=== PATIENT | male | born 1960 | race Two or more races ===

== ENCOUNTER 2019-08-25 16:29 | Emergency (ER) | payer BC ==
[~2019-08-25] VITALS: Ht 167.6 cm; Wt 65.8 kg
[2019-08-25] MEDS ORDERED: CLOPIDOGREL BISULFATE 75 MG TABLET PO ONE (17:00)
[2019-08-25 17:01] VITALS: BP 160/100
[2019-08-25] MEDS ORDERED: CLOP75TA PO (17:09)
--- NOTE | 2019-08-25 17:09 | PHYS DOC ---
Past Medical History Past Medical History: High Cholesterol, Hypertension Smoking: Cigarettes Adult General Chief Complaint Chief Complaint: dizziness and numbness HPI HPI Patient is a 59 year old male who presents with complaining of abdominal ul trasound and dizziness and numbness. Patient complaining of intermittent episodes of dizziness and right fingers numbness since December of last year that getting gradually worse. Patient had another episode yesterday and his primary care physician requested carotid ultrasound that was done today and she is called the primary care physician regarding more than 70% stenosis of proxi mal and mid left carotid study and patient was advised to come to the hospital. Patient denies numbness or dizziness at arrival to ER. Patient has history of smoking and hypertension and dyslipidemia and family history of CVA. Review of Systems Review of Systems Constitutional: Denies fever or chills [] Eyes: Denies change in visual acuity, redness, or eye pain [] HENT: Denies nasal congestion or sore throat [] Respiratory: Denies cough or shortness of breath [] Cardiovascular: No additional information not addressed in HPI [] GI: Denies abdominal pain, nausea, vomiting, bloody stools or diarrhea [] : Denies dysuria or hematuria [] Musculoskeletal: Denies back pain or joint pain [] Integument: Denies rash or skin lesions [] Neurologic: Denies headache, focal weakness, reports redness and sensory changes [] Endocrine: Denies polyuria or polydipsia [] All other systems were reviewed and found to be within normal limits, except as documented in this note. Current Medications Current Medications Current Medications Medications (Trade) Dose Ordered Sig/Rhea Start Time Stop Time Status Last Admin Dose Admin Clopidogrel Bisulfate (Plavix) 75 mg 1X ONCE 08/25/19 17:00 08/25/19 17:01 DC 08/25/19 17:21 75 MG Allergies Allergies Allergies Coded Allergies Type Severity Reaction Last Updated Verified No Known Drug Allergies 08/25/19 No Physical Exam Physical Exam Constitutional: Well developed, well nourished, mild distress, non-toxic appearance. [] HENT: Normocephalic, atraumatic. Eyes: PERRLA, EOMI, conjunctiva normal, no discharge. [] Neck: Normal range of motion, no tenderness, supple, no stridor, mild left carotid bruit Cardiovascular:Heart rate regular rhythm, no murmur [] Lungs & Thorax: Bilateral breath sounds clear to auscultation [] Abdomen: Bowel sounds normal, soft, no tenderness, no masses, no pulsatile mas ses. [] Skin: Warm, dry, no erythema, no rash. [] Back: No tenderness, no CVA tenderness. [] Extremities: No tenderness, no cyanosis, no clubbing, ROM intact, no edema. [] Neurologic: Alert and oriented X 3, no focal deficits noted. Normal sensation an d motor activity Psychologic: Affect anxious judgement normal, mood normal. [] Current Patient Data Vital Signs Vital Signs Date Time Temp Pulse Resp B/P (MAP) Pulse Ox O2 Delivery O2 Flow Rate FiO2 08/25/19 17:01 98.1 70 20 160/100 (120) 98 Room Air 98.1 EKG EKG [] Radiology/Procedures Radiology/Procedures [] Course & Med Decision Making Course & Med Decision Making Evaluation of patient in ER showed 59-year-old male patient with episodes of dizziness and right-sided numbness sent his primary care provider because of abnormal carotid ultrasound with more than 70% stenosis of left carotid artery. Is asymptomatic in ER. On-call vascular surgeon Dr. Gordillo was consulted at 1656 and he recommended to give patient Plavix and discharged home with follow- up with his office tomorrow. I've spoken with the patient and/or caregivers. I've explained the patient's condition, diagnosis and treatment plan based on information available to me at this time. I've answered the patient's and/or caregivers questions and addressed any concerns. The patient and/or caregivers have a good understanding the patie nt's diagnosis, condition and treatment plan as can be expected at this point. Vital signs have been stabilized. The patient's condition is stable for discharge from the emergency department. The patient will pursue further outpatient evaluation with her primary care provider or other designated consulting physician as outlined in the discharge instructions. Patient and/or caregivers are agreeable to this plan of care and follow-up instructions have been explained in detail. The patient and/or caregivers have received these instructions in written format and expressed understanding of these discharge instructions. The patient and her caregivers are aware that if any significant change in condition or worsening of symptoms should prompt him to immediately return to this of the closest emergency department. If an emergent department is not readily available I would encourage him to call 911. Jewell Disclaimer Dragon Disclaimer This electronic medical record was generated, in whole or in part, using a voice recognition dictation system. Departure Departure Impression: Primary Impression: TIA (transient ischemic attack) Additional Impressions: Carotid stenosis, symptomatic w/o infarct Tobacco abuse Tobacco abuse counseling Disposition: HOME, SELF-CARE (at 1715) Condition: STABLE Referrals: BRII MARCUS APRN (PCP) SAMEER GORDILLO II, MD Patient Instructions: Carotid Artery Disease, Smoking Cessation, Tips For Success, Transient Ischemic Attack Additional Instructions: Follow-up with on- call vascular surgeon tomorrow Quit smoking Return to ER if not getting better Scripts Clopidogrel Bisulfate (CLOPIDOGREL) 75 Mg Tablet 1 TAB PO DAILY, #30 TAB 0 Refills Prov: XIN BLACK MD 08/25/19 Problem Qualifiers Additional Impressions: Carotid stenosis, symptomatic w/o infarct Laterality: left Qualified Codes: I65.22 - Occlusion and stenosis of left carotid artery XIN BLACK MD Aug 25, 2019 17:09
== END 2019-08-25 17:33 | disposition home or self-care (01) ==
LOC: ER 16:29
DX: I65.22 Occlusion and stenosis of left carotid artery (principal); R42 Dizziness and giddiness; R20.0 Anesthesia of skin; Z71.6 Tobacco abuse counseling; E78.00 Pure hypercholesterolemia, unspecified; I10 Essential (primary) hypertension; F17.210 Nicotine dependence, cigarettes, uncomplicated
CPT/HCPCS: 99283

== ENCOUNTER → 2019-08-25 | Outpatient (CLI) | payer BC ==
[~2019-08-25] MED LIST: CLOP75TA PO
--- NOTE | 2019-08-25 16:08 | RAD ---
Ultrasound carotid Doppler 08/25/2019 3:30 PM INDICATION: Right eye vision changes and right hand numbness COMPARISON: None available TECHNIQUE: Sonographic imaging of the carotid vasculature was performed utilizing grayscale, color Doppler and spectral waveform analysis. FINDINGS: (All velocities are measured cm per second) Right carotid: Mild plaque is noted at the right carotid bifurcation without significant luminal stenosis. Peak systolic velocity: Proximal common carotid artery: 83 Middle common carotid artery: 83 Distal common carotid artery: 61 Proximal internal carotid artery: 139 Middle internal carotid artery: 104 Distal internal carotid artery: 83 End-diastolic velocity: 44 External carotid artery: 93 Internal carotid artery/common carotid artery ratio: 1.67 Vertebral artery: Antegrade flow Left carotid: Dense calcified atheromatous plaque is identified at the left carotid bifurcation with greater than 50 percent luminal stenosis. Peak systolic velocity: Proximal common carotid artery: 94 Middle common carotid artery: 50 Distal common carotid artery: 54 Proximal internal carotid artery: 536 Middle internal carotid artery: 289 Distal internal carotid artery: 61 End-diastolic velocity: 280 External carotid artery: 87 Internal carotid artery/common carotid artery ratio: 5.69 Vertebral artery: Antegrade flow IMPRESSION: 1. There is critical stenosis involving the left proximal internal carotid artery and greater than 70 percent stenosis involving the mid internal carotid artery. Findings are based on elevated peak systolic velocity, end-diastolic volume and internal carotid artery to common carotid artery ratios. Patient is symptomatic and therefore ordering provider recommended patient be sent to the emergency department for further evaluation. 2. 50-69 percent stenosis involving the right proximal internal carotid artery with elevated peak systolic velocity and end-diastolic velocity. 3. Antegrade flow is identified in the vertebral arteries. 4. Evaluation of the carotid vasculature and measurements for luminal stenosis was performed utilizing NASCET criteria. FOR INTERNAL CODING PURPOSES Critical result: Findings discussed with BRII MARCUS at 08/25/2019 4:00 PM. RESULT CODE: (C) Electronically signed by: Ute Casanova MD (08/25/2019 4:05 PM) [facility]
--- NOTE | 2019-08-25 16:59 | RAD ---
CERVICAL SPINE WO CONTRAST DATE: 08/25/2019 2:45 PM INDICATION: TECHNIQUE: Multiplanar multisequence magnetic resonance imaging of the cervical spine was performed without administration of intravenous contrast using the standard cervical spine protocol. COMPARISON: None. FINDINGS: The cervical spine is normally aligned. No acute fracture. Mild multilevel degenerative disc desiccation and disc height loss. Mild degenerative endplate edema at C6-7. The spinal cord is normal in signal intensity. On the limited views of the cranial cavity and brain, the cerebellum and allen have normal morphology and signal characteristics. No Chiari malformation. No soft tissue abnormality. Abnormal flow void in the right high cervical and intracranial vertebral artery. C2-3: No significant spinal canal stenosis or neural foraminal narrowing. C3-4: No significant spinal canal stenosis or neural foraminal narrowing. C4-5: Disc osteophyte complex. No significant spinal stenosis or neural foraminal narrowing. C5-6: Disc osteophyte complex. Mild spinal stenosis. No significant neuroforaminal narrowing. C6-7: Disc osteophyte complex. Mild spinal stenosis. No significant neuroforaminal narrowing. C7-T1: No significant spinal canal stenosis or neural foraminal narrowing. IMPRESSION: 1. Mild cervical spondylosis, detailed level by level above. 2. Abnormal flow void in the right high cervical and intracranial vertebral artery, which may indicate stenosis or occlusion. This could be further characterized with CTA or MRA. Electronically signed by: Lewis Yuen MD (08/25/2019 4:56 PM) [id number]
== END | disposition home or self-care (01) ==
LOC: MRI 14:05
PROVIDERS: ATTEND Nurse Practitioner Family
DX: I65.23 Occlusion and stenosis of bilateral carotid arteries (principal); I10 Essential (primary) hypertension; F17.200 Nicotine dependence, unspecified, uncomplicated; E78.5 Hyperlipidemia, unspecified
CPT/HCPCS: 72141; 93880

== ENCOUNTER 2020-03-22 04:33 | Inpatient (IN) | payer BC ==
[~2020-03-22] VITALS: Ht 167.6 cm; Wt 68.2 kg
[2020-03-22 05:01] LABS: BASO # 0.1 x10^3/uL (0.0-0.2); BASO % 1 % (0-3); EOS # 0.2 x10^3/uL (0.0-0.7); EOS % 2 % (0-3); HEMATOCRIT 43.4 % (39.0-53.0); HEMOGLOBIN 15.2 g/dL (13.0-17.5); LYMPH # 3.2 x10^3/uL (1.0-4.8); LYMPH % 24 % (24-48); MEAN CORPUSCULAR HEMOGLOBIN 30 pg (25-35); MEAN CORPUSCULAR HGB CONC 35 g/dL (31-37); MEAN CORPUSCULAR VOLUME 86 fL (79-100); MONO # 0.9 x10^3/uL (0.0-1.1); MONO % 7 % (0-9); NEUT # 8.7 x10^3/uL (1.8-7.7); NEUT % 67 % (31-73); PLATELET COUNT 328 x10^3/uL (140-400); RED BLOOD COUNT 5.04 x10^6/uL (4.30-5.70); RED CELL DISTRIBUTION WIDTH 13.4 % (11.5-14.5); WHITE BLOOD COUNT 13.1 x10^3/uL (4.0-11.0)
[2020-03-22] MEDS ORDERED: LABETALOL 20 MG/4 ML DISP.SYRIN. IVP ONE (05:15)
--- NOTE | 2020-03-22 05:19 | PHYS DOC ---
Past Medical History Past Medical History: High Cholesterol, Hypertension, TIA Additional Past Medical Histor: HEART MURMUR, spinal stenosis Past Surgical History: Tonsillectomy Additional Past Surgical Histo: TYMPANOSTOMY, HEART CATH A CHILD Smoking Status: Current Every Day Smoker Alcohol Use: Rarely Drug Use: None General Adult EDM: Chief Complaint: HYPERTENSION HPI: HPI: Patient is a 59 year old male presents with report of elevated blood pressures over the last few days. Reports had been increased on his Lisinopril to 40mg on last visit to his doctors office. Reports has been taking medication as scheduled but despite has noted his blood pressures have trended upward. Reports history of carotid artery stenosis requiring endarterectomy back in August 2019. Patient was supposed to follow up with his vascular surgeon but his appointment got canceled secondary to current national pandemic. He shouldn't awoke this morning at 0300 and took his blood pressure which he noted was 155/95. Patient did take his Lisinopril this AM at 0330. Patient reports he also has intermittent sharp headaches and has been having episodes in which he feels like his body "gets turned off". Reports weakness and heaviness to bilateral arms and leg. Reports symptoms only last a few seconds and then self resolve. Patient denies known trauma. Reports concern that his symptoms might be related to his elevated blood pressure. Patient reports he knows he starts to obsess over his blood pressure and reports he currently feels very anxious. Denies chest pain or syncope. Review of Systems: Review of Systems: Constitutional: Denies fever or chills Eyes: Denies redness or eye pain HENT: Denies nasal congestion or sore throat Respiratory: Denies cough or shortness of breath Cardiovascular: Denies chest pain or palpitations GI: Denies abdominal pain, nausea, or vomiting : Denies dysuria or hematuria Musculoskeletal: Denies back pain or joint pain Integument: Denies rash or skin lesions Neurologic: Reports headache, generalized weakness, and numbness to right upper extremity. Complete systems were reviewed and found to be within normal limits, except as documented in this note. Current Medications: Current Medications Medications (Trade) Dose Ordered Sig/Rhea Start Time Stop Time Status Last Admin Dose Admin Labetalol HCl (Normodyne Iv Push) 10 mg 1X ONCE 03/22/20 05:00 03/22/20 05:01 UNV Lorazepam (Ativan Inj) 0.5 mg 1X ONCE 03/22/20 05:00 03/22/20 05:01 UNV Allergies: Allergies: Allergies Coded Allergies Type Severity Reaction Last Updated Verified No Known Drug Allergies 08/25/19 No Physical Exam: PE: Constitutional: Well developed, well nourished, anxious, non-toxic appearance HENT: Normocephalic, atraumatic, oropharynx moist Eyes: PERRL, EOMI, conjunctiva normal, no discharge, no nystagmus Neck: Normal range of motion, no tenderness, supple Cardiovascular: Heart rate normal, regular rhythm Lungs & Thorax: Bilateral breath sounds clear to auscultation, no wheezing Abdomen: Soft, no tenderness Skin: Warm, dry, no erythema, no rash Extremities: No tenderness, ROM intact, no edema Neurologic: Alert and oriented X 3, normal motor function, normal sensory function, no focal deficits noted Psychologic: Affect anxious, judgment normal Current Patient Data: Labs: Laboratory Tests Test 03/22/20 04:53 White Blood Count 13.1 x10^3/uL (4.0-11.0) H Red Blood Count 5.04 x10^6/uL (4.30-5.70) Hemoglobin 15.2 g/dL (13.0-17.5) Hematocrit 43.4 % (39.0-53.0) Mean Corpuscular Volume 86 fL (79-100) Mean Corpuscular Hemoglobin 30 pg (25-35) Mean Corpuscular Hemoglobin Concent 35 g/dL (31-37) Red Cell Distribution Width 13.4 % (11.5-14.5) Platelet Count 328 x10^3/uL (140-400) Neutrophils (%) (Auto) 67 % (31-73) Lymphocytes (%) (Auto) 24 % (24-48) Monocytes (%) (Auto) 7 % (0-9) Eosinophils (%) (Auto) 2 % (0-3) Basophils (%) (Auto) 1 % (0-3) Neutrophils # (Auto) 8.7 x10^3/uL (1.8-7.7) H Lymphocytes # (Auto) 3.2 x10^3/uL (1.0-4.8) Monocytes # (Auto) 0.9 x10^3/uL (0.0-1.1) Eosinophils # (Auto) 0.2 x10^3/uL (0.0-0.7) Basophils # (Auto) 0.1 x10^3/uL (0.0-0.2) Laboratory Tests 03/22/20 04:53 EKG: EKG: @0447 NSR at 83bpm, NO ST elevation, baseline artifact, QRS 100ms, QT/QTc 352/414ms Radiology/Procedures: Radiology/Procedures: PROCEDURE: CT HEAD WO CONTRAST PQRS Compliance Statement: One or more of the following individualized dose reduction techniques were utilized for this examination: 1. Automated exposure control 2. Adjustment of the mA and/or kV according to patient size 3. Use of iterative reconstruction technique CT HEAD WITHOUT CONTRAST History: Headache, weakness, hypertension Comparison: None. Procedure: Axial images are obtained of the head from the skull base through the vertex without IV contrast. Findings: The ventricles and sulci are normal for the patient's age. No mass-effect, midline shift, hemorrhage, extra-axial fluid collection, or obvious acute infarction is identified. Basilar cisterns are patent. Bone windows demonstrate no acute calvarial abnormality. The visualized paranasal sinuses are clear. Mastoid air cells are well aerated. IMPRESSION: No acute intracranial abnormality. Electronically signed by: Slim Wong MD (03/22/2020 5:32 AM) [id number] Course & Med Decision Making: Course & Med Decision Making Pertinent Labs and Imaging studies reviewed. (See chart for details) Patient presents with report of elevated blood pressure which is progressively increased despite compliance with his medication. Patient also reports episodes which have been more frequent in nature in which she has significant weakness to bilateral arms and legs as if "the switch to his body was turned off". Patient with blood pressure in the 220s over 110s upon arrival. Patient does appear extremely anxious. NIHSS 0. Blood pressure and anxiety addressed. EKG stable. CT head without acute process. Aspirin provided. Labs obtained and posted to chart. Concern that given patient's symptoms and history of prior carotid stenosis that patient may be experiencing TIAs. With elevated blood pressure and recent change in no PCP, patient would benefit with inpatient admission and treatment. Patient requiring admission for further evaluation and treatment. Discussed with Dr. Aguilar (hospitalist) who is in agreement with admission. Discussed findings and plan with patient, who acknowledges understanding and agreement. Jewell Disclaimer: Jewell Disclaimer: This electronic medical record was generated, in whole or in part, using a voice recognition dictation system. Departure Departure Impression: Primary Impression: Hypertensive urgency Additional Impressions: Weakness Anxiety Disposition: ADMITTED INPATIENT Admitting Physician: WAYNE Matthews) Condition: STABLE Referrals: NO PCP (PCP) NIHSS Stroke Scale NIH Stroke Scale: NIH Stroke Scale Response (Comments) Value Level of Consciousness: 0 Alert/Responsive 0 LOC Questions: 0 Answers both correctly 0 LOC Commands: 0 Performs both tasks 0 Best Gaze: 0 Normal 0 Visual: 0 No visual loss 0 Facial Palsy: 0 Normal, symmetrical 0 Motor - Left Arm 0 No drift 0 Motor - Right Arm 0 No drift 0 Motor - Left Leg 0 No drift 0 Motor: Right Leg 0 No drift 0 Limb Ataxia: 0 Absent 0 Sensory: 0 No loss 0 Best Language: 0 Normal 0 Dysathria: 0 Normal 0 Extinction and Inattention: 0 Normal 0 Total 0 Critical Care Time Critical care time was 30 minutes which includes time at bedside, spent in discussion of patient's care with specialists and/or family members, with interpretation of laboratory and/or radiological studies and is exclusive of procedures. LOU PENA DO March 22, 2020 05:18
[2020-03-22] MEDS ORDERED: ASPIRIN 325 MG TABLET PO ONE (05:30)
[2020-03-22] MEDS ORDERED: LABETALOL 20 MG/4 ML DISP.SYRIN. IVP PRN (05:30)
--- NOTE | 2020-03-22 05:35 | RAD ---
RS Compliance Statement: One or more of the following individualized dose reduction techniques were utilized for this examination: 1. Automated exposure control 2. Adjustment of the mA and/or kV according to patient size 3. Use of iterative reconstruction technique CT HEAD WITHOUT CONTRAST History: Headache, weakness, hypertension Comparison: None. Procedure: Axial images are obtained of the head from the skull base through the vertex without IV contrast. Findings: The ventricles and sulci are normal for the patient's age. No mass-effect, midline shift, hemorrhage, extra-axial fluid collection, or obvious acute infarction is identified. Basilar cisterns are patent. Bone windows demonstrate no acute calvarial abnormality. The visualized paranasal sinuses are clear. Mastoid air cells are well aerated. IMPRESSION: No acute intracranial abnormality. Electronically signed by: Slim Wong MD (03/22/2020 5:32 AM) [id number]
[2020-03-22 05:47] LABS: CALCIUM 9.1 mg/dL (8.5-10.1); CREATININE 0.8 mg/dL (0.7-1.3); GFR 99.3; POTASSIUM 3.6 mmol/L (3.5-5.1)
[2020-03-22 05:52] LABS: ALBUMIN 4.1 g/dL (3.4-5.0); ALBUMIN/GLOBULIN RATIO 1.7 (1.0-1.7); MAGNESIUM 1.8 mg/dL (1.8-2.4); TOTAL BILIRUBIN 0.8 mg/dL (0.2-1.0); TOTAL PROTEIN 6.5 g/dL (6.4-8.2)
--- NOTE | 2020-03-22 06:16 | EKG ---
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
[2020-03-22] MEDS ORDERED: LISI40TA2 PO (07:51)
[2020-03-22] MEDS ORDERED: SIMV40TA18 PO (07:51)
[2020-03-22] MEDS ORDERED: LISINOPRIL 20 MG TABLET PO SCH (10:00)
--- NOTE | 2020-03-22 10:19 | PDOC2 ---
TIN THOMPSON ORACLE SOA ARCHITECT 03/22/20 1019: CARDIAC CONSULT DATE OF CONSULT Date of Consult DATE: 03/22/20 TIME: 10:10 REASON FOR CONSULT Reason for Consult: Accelerated HTN REFERRING PHYSICIAN Referring Physician: Dr. Molina SOURCE Source: Chart review, Patient HISTORY OF PRESENT ILLNESS HISTORY OF PRESENT ILLNESS This is a 59 yo male who presented secondary to elevated blood pressure and headache. Reports his blood pressure has been more elevated in the last couple of weeks. Was previously on 40mg daily. Quit smoking last August and started eating healthier at time of carotid endarterectomy. Blood pressure began running on low end and he was occasionally getting dizzy so he decreased his lisinopril to 20mg daily. Reports he has been eating a higher Na content diet recently. Systolic blood pressure has been ranging from 120-150 This morning at 4am, BP was 156/95. Became very anxious that blood pressure was elevated. Took his blood pressure again and SBP was 190 so he decided to come to the ED for further evaluation and treatment. He denies any chest pain, palpitations, diaphoresis, or nausea/vomiting. Of note, has significant anxiety and takes his blood pressure up to 6 times per day. Blood pressure generally more elevated at 4am in the morning. Also report a few instances over the last couple of the when his bilateral feet and occasionally his hands get heavy and weak. This generally occurs when he is walking and comes on abruptly. Last 10-15 secondary and resolved without intervention. PAST MEDICAL HISTORY Cardiovascular: HTN, Hyperlipidemia, Other (carotid artery disease s/p endarterectomy ) Pulmonary: COPD CENTRAL NERVOUS SYSTEM: TIA GI: GERD Psych: Anxiety Musculoskeletal: Other (spinal stenosis ) Renal/: Benign prostatic enlarg. PAST SURGICAL HISTORY Past Surgical History carotid endarterectomy FAMILY HISTORY Family History: Coronary Artery Disease SOCIAL HISTORY Smoke: Quit (08/2019) ALCOHOL: none Drugs: None Lives: Alone CURRENT MEDICATIONS CURRENT MEDICATIONS Current Medications Medications (Trade) Dose Ordered Sig/Rhea Route PRN Reason Start Time Stop Time Status Last Admin Dose Admin Labetalol HCl (Normodyne Iv Push) 10 mg 1X ONCE IVP 03/22/20 05:15 03/22/20 05:16 DC 03/22/20 05:25 Aspirin (Almita Aspirin) 325 mg 1X ONCE PO 03/22/20 05:30 03/22/20 05:31 DC 03/22/20 05:38 ALLERGIES ALLERGIES: Coded Allergies: No Known Drug Allergies (Unverified , 08/25/19) ROS Review of System 14 point ROS conducted with pertinent positives noted above in HPI PHYSICAL EXAM General: Alert, Oriented X3, Cooperative, No acute distress HEENT: Atraumatic, Mucous membr. moist/pink Lungs: Clear to auscultation, Normal air movement Heart: Regular rate Abdomen: Soft, No tenderness Extremities: No edema, Normal pulses Skin: No breakdown, No significant lesion Neuro: Normal speech, Sensation intact Psych/Mental Status: Mental status NL, Mood NL MUSCULOSKELETAL: No joint tenderness VITALS/I&O VITALS/I&O: Vital Signs Date Time Temp Pulse Resp B/P (MAP) Pulse Ox O2 Delivery O2 Flow Rate FiO2 03/22/20 08:30 Room Air 03/22/20 06:17 71 13 99 03/22/20 05:25 185/98 03/22/20 04:40 98.0 98.0 LABS Lab: Laboratory Tests Test 03/22/20 04:53 03/22/20 05:22 03/22/20 08:30 White Blood Count 13.1 x10^3/uL (4.0-11.0) H Red Blood Count 5.04 x10^6/uL (4.30-5.70) Hemoglobin 15.2 g/dL (13.0-17.5) Hematocrit 43.4 % (39.0-53.0) Mean Corpuscular Volume 86 fL (79-100) Mean Corpuscular Hemoglobin 30 pg (25-35) Mean Corpuscular Hemoglobin Concent 35 g/dL (31-37) Red Cell Distribution Width 13.4 % (11.5-14.5) Platelet Count 328 x10^3/uL (140-400) Neutrophils (%) (Auto) 67 % (31-73) Lymphocytes (%) (Auto) 24 % (24-48) Monocytes (%) (Auto) 7 % (0-9) Eosinophils (%) (Auto) 2 % (0-3) Basophils (%) (Auto) 1 % (0-3) Neutrophils # (Auto) 8.7 x10^3/uL (1.8-7.7) H Lymphocytes # (Auto) 3.2 x10^3/uL (1.0-4.8) Monocytes # (Auto) 0.9 x10^3/uL (0.0-1.1) Eosinophils # (Auto) 0.2 x10^3/uL (0.0-0.7) Basophils # (Auto) 0.1 x10^3/uL (0.0-0.2) Sodium Level 138 mmol/L (136-145) Potassium Level 3.6 mmol/L (3.5-5.1) Chloride Level 100 mmol/L (98-107) Carbon Dioxide Level 26 mmol/L (21-32) Anion Gap 12 (6-14) Blood Urea Nitrogen 22 mg/dL (8-26) Creatinine 0.8 mg/dL (0.7-1.3) Estimated GFR (Cockcroft-Gault) 99.3 BUN/Creatinine Ratio 28 (6-20) H Glucose Level 118 mg/dL (70-99) H Calcium Level 9.1 mg/dL (8.5-10.1) Magnesium Level 1.8 mg/dL (1.8-2.4) Total Bilirubin 0.8 mg/dL (0.2-1.0) Aspartate Amino Transferase (AST) 18 U/L (15-37) Alanine Aminotransferase (ALT) 28 U/L (16-63) Alkaline Phosphatase 43 U/L (46-116) L Creatine Kinase 81 U/L (39-308) Creatine Kinase MB (Mass) 1.4 ng/mL (0.0-3.6) Creatine Kinase MB Relative Index 1.7 % (0-4) Troponin I Quantitative < 0.017 ng/mL (0.000-0.055) < 0.017 ng/mL (0.000-0.055) Total Protein 6.5 g/dL (6.4-8.2) Albumin 4.1 g/dL (3.4-5.0) Albumin/Globulin Ratio 1.7 (1.0-1.7) Laboratory Tests 03/22/20 04:53 Laboratory Tests 03/22/20 05:22 ASSESSMENT/PLAN ASSESSMENT/PLAN 1. Hypertensive urgency; now better controlled. Blood pressure generally runs more elevated in the am per patient record 2. Intermittent bilateral LE heaviness/weakness; last 10-15 seconds and resolves without intervention. vascular and neuro consult 3. Carotid disease; s/p recent left carotid endarterectomy at 4. Hyperlipidemia; statin 5. Tobaccoism; in remission 6. Anxiety Recommendations Continue lisinopril; will increase to BID dosing as blood pressure is generally more elevated in the morning Add ASA Continue statin Outpatient echocardiogram to assess LV systolic function Consider outpatient stress test given risk factors. Patient would like further cardiac workup to be conducted at as he has seen a magnetic prospecting operator there previously and has been following there for carotid disease Supportive care. DAMIEN DOVE MD 03/22/20 1449: CARDIAC CONSULT ASSESSMENT/PLAN ASSESSMENT/PLAN Patient seen and examined. Agree with NAPRAPATH's assessment and plan. Blood pressure much better controlled since admission. Agree with 2D echo and MPI as an outpatient Thank you for the consultation TIN THOMPSON APRN March 22, 2020 10:19 DAMIEN DOVE MD March 22, 2020 14:49
--- NOTE | 2020-03-22 10:21 | PDOC1 ---
History and Physical Date of Admission Date of Admission DATE: 03/22/20 TIME: 10:12 Identification/Chief Complaint Chief Complaint htn Source Source: Chart review, Patient History of Present Illness History of Present Illness Mr. Navarro, is a 59 year old male went tot he ER as he was worried about his blood pressure he had been increased on his Lisinopril to 40mg on last visit to his doctors office, possibly Dr. Wilkerson, he is unsure, but he has been taking half a pill on his own as he checks his blood pressure three times day every day and has some readings of 100 range systolic over the past month,. he has noted his blood pressures have trended upward the past 3 days and he was very worried, . Reports history of carotid artery stenosis requiring endarterectomy back in August 2019, Dr. Brunson. he has had trouble following up due to COVID-19 this AM, 0300, bp was 155/95. Patient did take his Lisinopril this AM at 0330. Patient reports he also has intermittent sharp headaches and has been having episodes in which he feels like his body "gets turned off". Reports weakness and heaviness to bilateral arms and leg. possible TIA symptoms, Patient reports he knows he starts to obsess over his blood pressure and reports he currently feels very anxious. he declined that ativan ordered in the ER and says he doesnt want treatment for anxiety, he just deals with it. Denies chest pain or syncope. 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, Past Medical History Past Medical History carotid stenosis Cardiovascular: HTN, Hyperlipidemia Pulmonary: No pertinent hx GI: No pertinent hx Heme/Onc: No pertinent hx Family History Family History: No Significant Social History Smoke: No ALCOHOL: none Drugs: None Current Problem List Problem List Problems Medical Problems: (1) Anxiety Status: Acute (2) Hypertensive urgency Status: Acute (3) Weakness Status: Acute Current Medications Current Medications Current Medications Labetalol HCl (Normodyne Iv Push) 10 mg 1X ONCE IVP Last administered on 03/22/20at 05:25; Start 03/22/20 at 05:15; Stop 03/22/20 at 05:16; Status DC Lorazepam (Ativan Inj) 0.5 mg 1X ONCE IVP ; Start 03/22/20 at 05:15; Stop 03/22/20 at 05:16; Status DC Labetalol HCl (Normodyne Iv Push) 10 mg PRN Q4HRS PRN IVP HYPERTENSION; Start 03/22/20 at 05:30 Lorazepam (Ativan Inj) 0.5 mg PRN Q4HRS PRN IVP ANXIETY / AGITATION; Start 03/22/20 at 05:30 Aspirin (Almita Aspirin) 325 mg 1X ONCE PO Last administered on 03/22/20at 05:38; Start 03/22/20 at 05:30; Stop 03/22/20 at 05:31; Status DC Simvastatin (Zocor) 40 mg HS PO ; Start 03/22/20 at 21:00 Lisinopril (Prinivil) 40 mg DAILY PO ; Start 03/22/20 at 10:00 Active Scripts Active Reported Simvastatin 40 Mg Tablet 40 Mg PO HS Lisinopril 40 Mg Tablet 20 PO DAILY Allergies Allergies: Coded Allergies: No Known Drug Allergies (Unverified , 08/25/19) ROS General: No: Chills, Night Sweats, Fatigue, Malaise, Appetite, Other PSYCHOLOGICAL ROS: YES: Anxiety; No: Behavioral Disorder, Concentration difficultie, Decreased libido, Depression, Disorientation, Hallucinations, Hostility, Irritablity, Memory difficulties, Mood Swings, Obsessive thoughts, Physical abuse, Sexual abuse, Sleep disturbances, Suicidal ideation, Other Eyes: No Blurry vision, No Decreased vision, No Double vision, No Dry eyes, No Excessive tearing, No Eye Pain, No Itchy Eyes, No Loss of vision, No Photophobia, No Scotomata, No Uses contacts, No Uses glasses, No Other HEENT: No: Heacaches, Visual Changes, Hearing change, Nasal congestion, Nasal discharge, Oral lesions, Sinus pain, Sore Throat, Epistaxis, Sneezing, Snoring, Tinnitus, Vertigo, Vocal changes, Other Respiratory: No: Cough, Hemoptysis, Orthopnea, Pleuritic Pain, Shortness of breath, SOB with excertion, Sputum Changes, Stridor, Tachypnea, Wheezing, Other Cardiovascular: No Chest Pain, No Palpitations, No Orthopnea, No Paroxysmal Noc. Dyspnea, No Edema, No Lt Headedness, No Other Gastrointestinal: No Nausea, No Vomiting, No Abdominal Pain, No Diarrhea, No Constipation, No Melena, No Hematochezia, No Other Genitourinary: No Dysuria, No Frequency, No Incontinence, No Hematuria, No Retention, No Discharge, No Urgency, No Pain, No Flank Pain, No Other, No , No , No , No , No , No , No Musculoskeletal: No Gait Disturbance, No Joint Pain, No Joint Stiffness, No Joint Swelling, No Muscle Pain, No Muscular Weakness, No Pain In:, No Swelling In:, No Other Neurological: No Behavorial Changes, No Bowel/Bladder ControlChng, No Confusion, No Dizziness, No Gait Disturbance, No Headaches, No Impaired Coord/balance, No Memory Loss, No Numbness/Tingling, No Seizures, No Speech Problems, No Tremors, No Visual Changes, No Weakness, No Other Skin: No Dry Skin, No Eczema, No Hair Changes, No Lumps, No Mole Changes, No Mottling, No Nail Changes, No Pruritus, No Rash, No Skin Lesion Changes, No Other, No Acne Physical Exam General: Alert, Oriented X3, Cooperative HEENT: Atraumatic, PERRLA Lungs: Clear to auscultation Heart: S1S2, RRR Abdomen: Normal bowel sounds, Soft Rectal Exam: not examined Extremities: No clubbing, No cyanosis, No edema Skin: No breakdown Neuro: Normal gait, Normal tone, Sensation intact Psych/Mental Status: Mental status NL, Mood NL Vitals Vitals Vital Signs Date Time Temp Pulse Resp B/P (MAP) Pulse Ox O2 Delivery O2 Flow Rate FiO2 03/22/20 08:30 Room Air 03/22/20 06:17 71 13 99 03/22/20 05:25 185/98 03/22/20 04:40 98.0 98.0 Labs Labs Laboratory Tests Test 03/22/20 04:53 03/22/20 05:22 03/22/20 08:30 White Blood Count 13.1 x10^3/uL (4.0-11.0) Red Blood Count 5.04 x10^6/uL (4.30-5.70) Hemoglobin 15.2 g/dL (13.0-17.5) Hematocrit 43.4 % (39.0-53.0) Mean Corpuscular Volume 86 fL (79-100) Mean Corpuscular Hemoglobin 30 pg (25-35) Mean Corpuscular Hemoglobin Concent 35 g/dL (31-37) Red Cell Distribution Width 13.4 % (11.5-14.5) Platelet Count 328 x10^3/uL (140-400) Neutrophils (%) (Auto) 67 % (31-73) Lymphocytes (%) (Auto) 24 % (24-48) Monocytes (%) (Auto) 7 % (0-9) Eosinophils (%) (Auto) 2 % (0-3) Basophils (%) (Auto) 1 % (0-3) Neutrophils # (Auto) 8.7 x10^3/uL (1.8-7.7) Lymphocytes # (Auto) 3.2 x10^3/uL (1.0-4.8) Monocytes # (Auto) 0.9 x10^3/uL (0.0-1.1) Eosinophils # (Auto) 0.2 x10^3/uL (0.0-0.7) Basophils # (Auto) 0.1 x10^3/uL (0.0-0.2) Sodium Level 138 mmol/L (136-145) Potassium Level 3.6 mmol/L (3.5-5.1) Chloride Level 100 mmol/L (98-107) Carbon Dioxide Level 26 mmol/L (21-32) Anion Gap 12 (6-14) Blood Urea Nitrogen 22 mg/dL (8-26) Creatinine 0.8 mg/dL (0.7-1.3) Estimated GFR (Cockcroft-Gault) 99.3 BUN/Creatinine Ratio 28 (6-20) Glucose Level 118 mg/dL (70-99) Calcium Level 9.1 mg/dL (8.5-10.1) Magnesium Level 1.8 mg/dL (1.8-2.4) Total Bilirubin 0.8 mg/dL (0.2-1.0) Aspartate Amino Transf (AST/SGOT) 18 U/L (15-37) Alanine Aminotransferase (ALT/SGPT) 28 U/L (16-63) Alkaline Phosphatase 43 U/L (46-116) Creatine Kinase 81 U/L (39-308) Creatine Kinase MB (Mass) 1.4 ng/mL (0.0-3.6) Creatine Kinase MB Relative Index 1.7 % (0-4) Troponin I Quantitative < 0.017 ng/mL (0.000-0.055) < 0.017 ng/mL (0.000-0.055) Total Protein 6.5 g/dL (6.4-8.2) Albumin 4.1 g/dL (3.4-5.0) Albumin/Globulin Ratio 1.7 (1.0-1.7) Laboratory Tests Test 03/22/20 04:53 03/22/20 05:22 03/22/20 08:30 White Blood Count 13.1 x10^3/uL (4.0-11.0) Red Blood Count 5.04 x10^6/uL (4.30-5.70) Hemoglobin 15.2 g/dL (13.0-17.5) Hematocrit 43.4 % (39.0-53.0) Mean Corpuscular Volume 86 fL (79-100) Mean Corpuscular Hemoglobin 30 pg (25-35) Mean Corpuscular Hemoglobin Concent 35 g/dL (31-37) Red Cell Distribution Width 13.4 % (11.5-14.5) Platelet Count 328 x10^3/uL (140-400) Neutrophils (%) (Auto) 67 % (31-73) Lymphocytes (%) (Auto) 24 % (24-48) Monocytes (%) (Auto) 7 % (0-9) Eosinophils (%) (Auto) 2 % (0-3) Basophils (%) (Auto) 1 % (0-3) Neutrophils # (Auto) 8.7 x10^3/uL (1.8-7.7) Lymphocytes # (Auto) 3.2 x10^3/uL (1.0-4.8) Monocytes # (Auto) 0.9 x10^3/uL (0.0-1.1) Eosinophils # (Auto) 0.2 x10^3/uL (0.0-0.7) Basophils # (Auto) 0.1 x10^3/uL (0.0-0.2) Sodium Level 138 mmol/L (136-145) Potassium Level 3.6 mmol/L (3.5-5.1) Chloride Level 100 mmol/L (98-107) Carbon Dioxide Level 26 mmol/L (21-32) Anion Gap 12 (6-14) Blood Urea Nitrogen 22 mg/dL (8-26) Creatinine 0.8 mg/dL (0.7-1.3) Estimated GFR (Cockcroft-Gault) 99.3 BUN/Creatinine Ratio 28 (6-20) Glucose Level 118 mg/dL (70-99) Calcium Level 9.1 mg/dL (8.5-10.1) Magnesium Level 1.8 mg/dL (1.8-2.4) Total Bilirubin 0.8 mg/dL (0.2-1.0) Aspartate Amino Transf (AST/SGOT) 18 U/L (15-37) Alanine Aminotransferase (ALT/SGPT) 28 U/L (16-63) Alkaline Phosphatase 43 U/L (46-116) Creatine Kinase 81 U/L (39-308) Creatine Kinase MB (Mass) 1.4 ng/mL (0.0-3.6) Creatine Kinase MB Relative Index 1.7 % (0-4) Troponin I Quantitative < 0.017 ng/mL (0.000-0.055) < 0.017 ng/mL (0.000-0.055) Total Protein 6.5 g/dL (6.4-8.2) Albumin 4.1 g/dL (3.4-5.0) Albumin/Globulin Ratio 1.7 (1.0-1.7) VTE Prophylaxis Ordered VTE Prophylaxis Devices: No VTE Pharmacological Prophylaxi: No Assessment/Plan Assessment/Plan accelerated hypertension orthostatic hypotension anxiety of health condition hx of carotid stenosis and surgery with Dr. Brunson consult cardio, he has been takign 20 mg lisinopril only, and checking 3 times a day and gets upset if he gets ANY high readings, needs reassurance ELOINA SORIANO MD March 22, 2020 10:21
[2020-03-22] MEDS ORDERED: amLODIPine BESYLATE 5 MG TABLET PO SCH (10:30)
[2020-03-22 11:10] VITALS: BP 150/81
[2020-03-22 11:13] VITALS: BP 128/85
[2020-03-22 11:16] VITALS: BP 124/81
--- NOTE | 2020-03-22 12:18 | PDOC2 ---
CONSULT Date of Consult Date of Consult DATE: 03/22/20 TIME: 12:13 Reason for Consult Reason for Consult: Possible TIA, history of carotid endarterectomy Identification/Chief Complaint Chief Complaint Right arm weakness, bilateral leg weakness Source Source: Chart review, Patient History of Present Illness Reason for Visit: Is a very nice 59-year-old male who underwent a left carotid endarterectomy for very high-grade symptomatic stenosis less than a year ago. He did well, and has been on appropriate medical management since with aspirin statin and blood pressure control. He tells me he quit smoking in August. He was admitted with the recurrent symptoms of right arm weakness and numbness as well as bilateral lower extremity weakness and numbness that lasts just a few seconds and then resolves. He states that he also had an episode where he felt like he was "walking sideways" presumably because 1 leg was weaker and not functioning as well as the other. He denies any amaurosis fugax, he noted that at the time of the symptoms he also had extremely elevated blood pressure. He was admitted with a hypertensive urgency. He denies any recent chest pain, shortness of breath, other true localizing symptoms as described above Past Medical History Cardiovascular: HTN, Hyperlipidemia Pulmonary: No pertinent hx CENTRAL NERVOUS SYSTEM: TIA GI: No pertinent hx Heme/Onc: No pertinent hx Psych: Anxiety Musculoskeletal: Other (spinal stenosis ) Renal/: Benign prostatic enlarg. Past Surgical History Past Surgical History Left carotid endarterectomy Family History Family History: No Significant Social History No ALCOHOL: none Drugs: None Current Problem List Problem List Problems Medical Problems: (1) Anxiety Status: Acute (2) Hypertensive urgency Status: Acute (3) Weakness Status: Acute Current Medications Current Medications Current Medications Labetalol HCl (Normodyne Iv Push) 10 mg 1X ONCE IVP Last administered on 03/22/20at 05:25; Start 03/22/20 at 05:15; Stop 03/22/20 at 05:16; Status DC Lorazepam (Ativan Inj) 0.5 mg 1X ONCE IVP ; Start 03/22/20 at 05:15; Stop 03/22/20 at 05:16; Status DC Labetalol HCl (Normodyne Iv Push) 10 mg PRN Q4HRS PRN IVP HYPERTENSION; Start 03/22/20 at 05:30 Lorazepam (Ativan Inj) 0.5 mg PRN Q4HRS PRN IVP ANXIETY / AGITATION; Start 03/22/20 at 05:30 Aspirin (Almita Aspirin) 325 mg 1X ONCE PO Last administered on 03/22/20at 05:38; Start 03/22/20 at 05:30; Stop 03/22/20 at 05:31; Status DC Simvastatin (Zocor) 40 mg HS PO ; Start 03/22/20 at 21:00; Stop 03/22/20 at 10:18; Status DC Lisinopril (Prinivil) 40 mg DAILY PO Last administered on 03/22/20at 11:16; Start 03/22/20 at 10:00 Amlodipine Besylate (Norvasc) 5 mg DAILY PO ; Start 03/22/20 at 10:30 Aspirin (Ecotrin) 81 mg DAILYWBKFT PO ; Start 03/23/20 at 08:00 Atorvastatin Calcium (Lipitor) 10 mg QHS PO ; Start 03/22/20 at 21:00 Active Scripts Active Reported Simvastatin 40 Mg Tablet 40 Mg PO HS Lisinopril 40 Mg Tablet 20 PO DAILY Allergies Allergies: Coded Allergies: No Known Drug Allergies (Unverified , 08/25/19) Physical Exam Physical Exam Left neck CEA incision well-healed No carotid bruit General: Alert, Oriented X3 HEENT: Atraumatic Heart: Regular rate, No murmurs Abdomen: Normal bowel sounds, Soft Extremities: No clubbing, No edema, Normal pulses Skin: No rashes, No breakdown Neuro: Normal gait, Normal speech, Strength at /5 X4 ext Psych/Mental Status: Mental status NL MUSCULOSKELETAL: No joint tenderness Vitals VITALS Vital Signs Date Time Temp Pulse Resp B/P (MAP) Pulse Ox O2 Delivery O2 Flow Rate FiO2 03/22/20 11:16 79 124/81 (95) 03/22/20 08:30 Room Air 03/22/20 06:17 13 99 03/22/20 04:40 98.0 98.0 Labs Labs Laboratory Tests Test 03/22/20 04:53 03/22/20 05:22 03/22/20 08:30 White Blood Count 13.1 x10^3/uL (4.0-11.0) Red Blood Count 5.04 x10^6/uL (4.30-5.70) Hemoglobin 15.2 g/dL (13.0-17.5) Hematocrit 43.4 % (39.0-53.0) Mean Corpuscular Volume 86 fL (79-100) Mean Corpuscular Hemoglobin 30 pg (25-35) Mean Corpuscular Hemoglobin Concent 35 g/dL (31-37) Red Cell Distribution Width 13.4 % (11.5-14.5) Platelet Count 328 x10^3/uL (140-400) Neutrophils (%) (Auto) 67 % (31-73) Lymphocytes (%) (Auto) 24 % (24-48) Monocytes (%) (Auto) 7 % (0-9) Eosinophils (%) (Auto) 2 % (0-3) Basophils (%) (Auto) 1 % (0-3) Neutrophils # (Auto) 8.7 x10^3/uL (1.8-7.7) Lymphocytes # (Auto) 3.2 x10^3/uL (1.0-4.8) Monocytes # (Auto) 0.9 x10^3/uL (0.0-1.1) Eosinophils # (Auto) 0.2 x10^3/uL (0.0-0.7) Basophils # (Auto) 0.1 x10^3/uL (0.0-0.2) Sodium Level 138 mmol/L (136-145) Potassium Level 3.6 mmol/L (3.5-5.1) Chloride Level 100 mmol/L (98-107) Carbon Dioxide Level 26 mmol/L (21-32) Anion Gap 12 (6-14) Blood Urea Nitrogen 22 mg/dL (8-26) Creatinine 0.8 mg/dL (0.7-1.3) Estimated GFR (Cockcroft-Gault) 99.3 BUN/Creatinine Ratio 28 (6-20) Glucose Level 118 mg/dL (70-99) Calcium Level 9.1 mg/dL (8.5-10.1) Magnesium Level 1.8 mg/dL (1.8-2.4) Total Bilirubin 0.8 mg/dL (0.2-1.0) Aspartate Amino Transf (AST/SGOT) 18 U/L (15-37) Alanine Aminotransferase (ALT/SGPT) 28 U/L (16-63) Alkaline Phosphatase 43 U/L (46-116) Creatine Kinase 81 U/L (39-308) Creatine Kinase MB (Mass) 1.4 ng/mL (0.0-3.6) Creatine Kinase MB Relative Index 1.7 % (0-4) Troponin I Quantitative < 0.017 ng/mL (0.000-0.055) < 0.017 ng/mL (0.000-0.055) Total Protein 6.5 g/dL (6.4-8.2) Albumin 4.1 g/dL (3.4-5.0) Albumin/Globulin Ratio 1.7 (1.0-1.7) Laboratory Tests Test 03/22/20 04:53 03/22/20 05:22 03/22/20 08:30 White Blood Count 13.1 x10^3/uL (4.0-11.0) Red Blood Count 5.04 x10^6/uL (4.30-5.70) Hemoglobin 15.2 g/dL (13.0-17.5) Hematocrit 43.4 % (39.0-53.0) Mean Corpuscular Volume 86 fL (79-100) Mean Corpuscular Hemoglobin 30 pg (25-35) Mean Corpuscular Hemoglobin Concent 35 g/dL (31-37) Red Cell Distribution Width 13.4 % (11.5-14.5) Platelet Count 328 x10^3/uL (140-400) Neutrophils (%) (Auto) 67 % (31-73) Lymphocytes (%) (Auto) 24 % (24-48) Monocytes (%) (Auto) 7 % (0-9) Eosinophils (%) (Auto) 2 % (0-3) Basophils (%) (Auto) 1 % (0-3) Neutrophils # (Auto) 8.7 x10^3/uL (1.8-7.7) Lymphocytes # (Auto) 3.2 x10^3/uL (1.0-4.8) Monocytes # (Auto) 0.9 x10^3/uL (0.0-1.1) Eosinophils # (Auto) 0.2 x10^3/uL (0.0-0.7) Basophils # (Auto) 0.1 x10^3/uL (0.0-0.2) Sodium Level 138 mmol/L (136-145) Potassium Level 3.6 mmol/L (3.5-5.1) Chloride Level 100 mmol/L (98-107) Carbon Dioxide Level 26 mmol/L (21-32) Anion Gap 12 (6-14) Blood Urea Nitrogen 22 mg/dL (8-26) Creatinine 0.8 mg/dL (0.7-1.3) Estimated GFR (Cockcroft-Gault) 99.3 BUN/Creatinine Ratio 28 (6-20) Glucose Level 118 mg/dL (70-99) Calcium Level 9.1 mg/dL (8.5-10.1) Magnesium Level 1.8 mg/dL (1.8-2.4) Total Bilirubin 0.8 mg/dL (0.2-1.0) Aspartate Amino Transf (AST/SGOT) 18 U/L (15-37) Alanine Aminotransferase (ALT/SGPT) 28 U/L (16-63) Alkaline Phosphatase 43 U/L (46-116) Creatine Kinase 81 U/L (39-308) Creatine Kinase MB (Mass) 1.4 ng/mL (0.0-3.6) Creatine Kinase MB Relative Index 1.7 % (0-4) Troponin I Quantitative < 0.017 ng/mL (0.000-0.055) < 0.017 ng/mL (0.000-0.055) Total Protein 6.5 g/dL (6.4-8.2) Albumin 4.1 g/dL (3.4-5.0) Albumin/Globulin Ratio 1.7 (1.0-1.7) Images Images Will obtain a carotid duplex and a renal artery duplex today Assessment/Plan Assessment/Plan Patient with some questionable localized neurologic symptoms with a history of left carotid endarterectomy for very high-grade carotid stenosis surgery performed a less than a year ago. I did discuss with him that there is about a 5% recurrent stenosis right after carotid endarterectomy, it is not clear that his symptoms are truly left hemispheric localizing. I reviewed his carotid duplex from prior to surgery at admission at the end of 2019 and the right carotid was only mildly narrowed at that time. He is on appropriate medications and states that he has been following this regimen without interruption. He tells me that he stopped smoking several mon ths ago. We will plan on repeat carotid duplex today or tomorrow Given his elevated blood pressure and his known atherosclerotic occlusive disease I did recommend a renal artery duplex as well. Will follow along with him and these results while he is here in the hospital. LILLIANA DING MD March 22, 2020 12:18
--- NOTE | 2020-03-22 12:46 | NUR ---
SS following up with discharge planning. SS discussed with pt RN. Pt is from home and is currently on room air. Per pt's RN, pt will most likely discharge to home later today. SS will continue to follow for discharge planning.
--- NOTE | 2020-03-22 13:40 | PDOC2 ---
NEUROLOGY CONSULT Date of Admission Date of Admission DATE: 03/22/20 TIME: 13:32 Reason for Consult Reason for Consult: TIA symptoms Referring Physician Referring Physician: Dr. Molina Source Source: Chart review, Patient History of Present Illness History of Present Illness The patient is a 59-year-old right-handed male who went to the Emergency department because he has noticed his blood pressure is high. He has had headaches, numbness in the right arm, feeling of heaviness in the right leg, also some numbness in the left arm and leg occasionally simultaneously. He had a left carotid endarterectomy in August 2019. He feels like his body is dragging at times. He is anxious about his blood pressure. There is no history of full-blown stroke, seizure, or head injury. He had similar symptoms before the carotid surgery. Past Medical History Cardiovascular: HTN, Hyperlipidemia Pulmonary: COPD Musculoskeletal: low back pain (lumbar spinal stenosis, cervical spine disease) Renal/: Benign prostatic enlarg. Past Surgical History Past Surgical History: Other (Left carotid endarterectomy) Family History Family History: CAD Social History Social History Quit smoking August 2019, rare alcohol, retired, Current Medications Current Medications Current Medications Labetalol HCl (Normodyne Iv Push) 10 mg 1X ONCE IVP Last administered on 03/22/20at 05:25; Start 03/22/20 at 05:15; Stop 03/22/20 at 05:16; Status DC Lorazepam (Ativan Inj) 0.5 mg 1X ONCE IVP ; Start 03/22/20 at 05:15; Stop 03/22/20 at 05:16; Status DC Labetalol HCl (Normodyne Iv Push) 10 mg PRN Q4HRS PRN IVP HYPERTENSION; Start 03/22/20 at 05:30 Lorazepam (Ativan Inj) 0.5 mg PRN Q4HRS PRN IVP ANXIETY / AGITATION; Start 03/22/20 at 05:30 Aspirin (Almita Aspirin) 325 mg 1X ONCE PO Last administered on 03/22/20at 05:38; Start 03/22/20 at 05:30; Stop 03/22/20 at 05:31; Status DC Simvastatin (Zocor) 40 mg HS PO ; Start 03/22/20 at 21:00; Stop 03/22/20 at 10:18; Status DC Lisinopril (Prinivil) 40 mg DAILY PO Last administered on 03/22/20at 11:16; Start 03/22/20 at 10:00; Stop 03/22/20 at 13:03; Status DC Amlodipine Besylate (Norvasc) 5 mg DAILY PO ; Start 03/22/20 at 10:30; Stop 03/22/20 at 13:03; Status DC Aspirin (Ecotrin) 81 mg DAILYWBKFT PO ; Start 03/23/20 at 08:00 Atorvastatin Calcium (Lipitor) 10 mg QHS PO ; Start 03/22/20 at 21:00 Lisinopril (Prinivil) 20 mg BID PO ; Start 03/22/20 at 14:00 Active Scripts Active Reported Simvastatin 40 Mg Tablet 40 Mg PO HS Lisinopril 40 Mg Tablet 20 PO DAILY Allergies Allergies: Coded Allergies: No Known Drug Allergies (Unverified , 08/25/19) ROS Review of System Negative for fever, chills, weight loss, shortness of breath, chest pain, indigestion, hematochezia, melena, and dysuria. Full 14-point review of systems is negative. Physical Exam Physical Examination General: Well-developed, well-nourished white male in no acute distress HEENT: Normocephalic andatraumatic.Temporal arteriespulsatile and nontender.Fundoscopic exam unremarkable Neck: Supple without bruit, no meningismus Musculoskeletal: Stability:see neurologic. Gait exam:see neurologic. Tone:see neurologic.Strength:see neurologic. Neurological: Mental Status:intact, orientation, memory, attention span/concentration, language, fund of knowledge normal. Cranial Nerves:Pupils equal and reactive to light, extraocular movements areintact, visual morales are full to confrontat ion. Facial sensation is normal. There is no facial asymmetry. Vestibulo-ocular reflex is intact. Palate elevates and tongue protrudes in midline. All other cranial related problems are negative except as mentioned before.Reflexes:2+ and symmetric with flexor plantar responses. Motor:5/5 strength with normal tone and bulk. Coordination:Finger-nose finger and kdkh-gg-[id number] testing are normal. Rapid alternating movements and fine finger movements are intact. Gait: a little arthritic, can tandem. Sensory:Normal pinprick, vibration, light touch, proprioception. Vitals VITALS Vital Signs Date Time Temp Pulse Resp B/P (MAP) Pulse Ox O2 Delivery O2 Flow Rate FiO2 03/22/20 11:16 79 124/81 (95) 03/22/20 08:30 Room Air 03/22/20 06:17 13 99 03/22/20 04:40 98.0 98.0 Labs Labs Laboratory Tests Test 03/22/20 04:53 03/22/20 05:22 03/22/20 08:30 03/22/20 11:15 White Blood Count 13.1 x10^3/uL (4.0-11.0) Red Blood Count 5.04 x10^6/uL (4.30-5.70) Hemoglobin 15.2 g/dL (13.0-17.5) Hematocrit 43.4 % (39.0-53.0) Mean Corpuscular Volume 86 fL (79-100) Mean Corpuscular Hemoglobin 30 pg (25-35) Mean Corpuscular Hemoglobin Concent 35 g/dL (31-37) Red Cell Distribution Width 13.4 % (11.5-14.5) Platelet Count 328 x10^3/uL (140-400) Neutrophils (%) (Auto) 67 % (31-73) Lymphocytes (%) (Auto) 24 % (24-48) Monocytes (%) (Auto) 7 % (0-9) Eosinophils (%) (Auto) 2 % (0-3) Basophils (%) (Auto) 1 % (0-3) Neutrophils # (Auto) 8.7 x10^3/uL (1.8-7.7) Lymphocytes # (Auto) 3.2 x10^3/uL (1.0-4.8) Monocytes # (Auto) 0.9 x10^3/uL (0.0-1.1) Eosinophils # (Auto) 0.2 x10^3/uL (0.0-0.7) Basophils # (Auto) 0.1 x10^3/uL (0.0-0.2) Sodium Level 138 mmol/L (136-145) Potassium Level 3.6 mmol/L (3.5-5.1) Chloride Level 100 mmol/L (98-107) Carbon Dioxide Level 26 mmol/L (21-32) Anion Gap 12 (6-14) Blood Urea Nitrogen 22 mg/dL (8-26) Creatinine 0.8 mg/dL (0.7-1.3) Estimated GFR (Cockcroft-Gault) 99.3 BUN/Creatinine Ratio 28 (6-20) Glucose Level 118 mg/dL (70-99) Calcium Level 9.1 mg/dL (8.5-10.1) Magnesium Level 1.8 mg/dL (1.8-2.4) Total Bilirubin 0.8 mg/dL (0.2-1.0) Aspartate Amino Transf (AST/SGOT) 18 U/L (15-37) Alanine Aminotransferase (ALT/SGPT) 28 U/L (16-63) Alkaline Phosphatase 43 U/L (46-116) Creatine Kinase 81 U/L (39-308) Creatine Kinase MB (Mass) 1.4 ng/mL (0.0-3.6) Creatine Kinase MB Relative Index 1.7 % (0-4) Troponin I Quantitative < 0.017 ng/mL (0.000-0.055) < 0.017 ng/mL (0.000-0.055) < 0.017 ng/mL (0.000-0.055) Total Protein 6.5 g/dL (6.4-8.2) Albumin 4.1 g/dL (3.4-5.0) Albumin/Globulin Ratio 1.7 (1.0-1.7) Laboratory Tests Test 03/22/20 04:53 03/22/20 05:22 03/22/20 08:30 03/22/20 11:15 White Blood Count 13.1 x10^3/uL (4.0-11.0) Red Blood Count 5.04 x10^6/uL (4.30-5.70) Hemoglobin 15.2 g/dL (13.0-17.5) Hematocrit 43.4 % (39.0-53.0) Mean Corpuscular Volume 86 fL (79-100) Mean Corpuscular Hemoglobin 30 pg (25-35) Mean Corpuscular Hemoglobin Concent 35 g/dL (31-37) Red Cell Distribution Width 13.4 % (11.5-14.5) Platelet Count 328 x10^3/uL (140-400) Neutrophils (%) (Auto) 67 % (31-73) Lymphocytes (%) (Auto) 24 % (24-48) Monocytes (%) (Auto) 7 % (0-9) Eosinophils (%) (Auto) 2 % (0-3) Basophils (%) (Auto) 1 % (0-3) Neutrophils # (Auto) 8.7 x10^3/uL (1.8-7.7) Lymphocytes # (Auto) 3.2 x10^3/uL (1.0-4.8) Monocytes # (Auto) 0.9 x10^3/uL (0.0-1.1) Eosinophils # (Auto) 0.2 x10^3/uL (0.0-0.7) Basophils # (Auto) 0.1 x10^3/uL (0.0-0.2) Sodium Level 138 mmol/L (136-145) Potassium Level 3.6 mmol/L (3.5-5.1) Chloride Level 100 mmol/L (98-107) Carbon Dioxide Level 26 mmol/L (21-32) Anion Gap 12 (6-14) Blood Urea Nitrogen 22 mg/dL (8-26) Creatinine 0.8 mg/dL (0.7-1.3) Estimated GFR (Cockcroft-Gault) 99.3 BUN/Creatinine Ratio 28 (6-20) Glucose Level 118 mg/dL (70-99) Calcium Level 9.1 mg/dL (8.5-10.1) Magnesium Level 1.8 mg/dL (1.8-2.4) Total Bilirubin 0.8 mg/dL (0.2-1.0) Aspartate Amino Transf (AST/SGOT) 18 U/L (15-37) Alanine Aminotransferase (ALT/SGPT) 28 U/L (16-63) Alkaline Phosphatase 43 U/L (46-116) Creatine Kinase 81 U/L (39-308) Creatine Kinase MB (Mass) 1.4 ng/mL (0.0-3.6) Creatine Kinase MB Relative Index 1.7 % (0-4) Troponin I Quantitative < 0.017 ng/mL (0.000-0.055) < 0.017 ng/mL (0.000-0.055) < 0.017 ng/mL (0.000-0.055) Total Protein 6.5 g/dL (6.4-8.2) Albumin 4.1 g/dL (3.4-5.0) Albumin/Globulin Ratio 1.7 (1.0-1.7) Images Images CT HEAD WITHOUT CONTRAST History: Headache, weakness, hypertension Comparison: None. Procedure: Axial images are obtained of the head from the skull base through the vertex without IV contrast. Findings: The ventricles and sulci are normal for the patient's age. No mass-effect, midline shift, hemorrhage, extra-axial fluid collection, or obvious acute infarction is identified. Basilar cisterns are patent. Bone windows demonstrate no acute calvarial abnormality. The visualized paranasal sinuses are clear. Mastoid air cells are well aerated. IMPRESSION: No acute intracranial abnormality. Assessment/Plan Assessment/Plan Impression: He is having various neurological symptoms in disparate areas of the body. I doubt he is having transient ischemic attacks. Hypertensive encephalopathy can cause non-localizing symptoms. He has history of cervical and lumbar stenosis but no bedside evidence of radiculopathy. He could have peripheral entrapment neuropathy such as carpal tunnel syndrome which of course would only explain the arm symptoms. Symptoms can also be due to anxiety. Recommendations: Carotid Dopplers studies, already ordered by vascular surgery MRI the brain Outpatient EMG study Okay for discharge later today if studies negative. Thank you for letting me help with the patient's care. PRABHAKAR HINES MD March 22, 2020 13:40
[2020-03-22] MEDS: LISINOPRIL 20 MG TABLET PO SCH ×2 (14:00→23:40)
[2020-03-22 15:35] VITALS: BP 127/72
--- NOTE | 2020-03-22 15:46 | RAD ---
EXAM: Brain MRI without contrast. HISTORY: Transient ischemic attack. TECHNIQUE: Multiplanar, multisequence magnetic resonance imaging of the brain was performed without contrast. COMPARISON: CT obtained on the same date. FINDINGS: There is no restricted diffusion to suggest acute or subacute infarction. There is no susceptibility effect to suggest hemorrhage. There is no mass effect or midline shift. There is no hydrocephalus. There are scattered focal areas of signal change within the cerebral white matter, likely due to chronic small vessel disease. There are tiny chronic lacunar infarcts involving the right caudate nucleus and adjacent frontal white matter. There is a tiny focus of encephalomalacia within the right cerebellum, also likely due to chronic infarction. The orbits, paranasal sinuses and mastoid air cells are unremarkable. There is decreased flow void within the distal right vertebral artery at the level of the skull base. This is not seen on coronal images and is likely due to skull base artifact rather than low flow or occlusion. IMPRESSION: 1. No acute intracranial finding. 2. Scattered areas of signal change within the cerebral white matter, most likely due to chronic small vessel disease. 3. Tiny chronic lacunar infarcts within the right caudate nucleus and adjacent frontal white matter. There is also a suspected tiny chronic infarct within the right cerebellum. 4. Decreased flow void within the distal right vertebral artery at the skull base. This most likely due to artifact. CT angiography or MR angiography can be performed to the concern for low flow or segmental occlusion. Electronically signed by: Florinda Joseph MD (03/22/2020 3:43 PM) [id number]
--- NOTE | 2020-03-22 16:57 | RAD ---
DOPPLER CAROTID BILAT History: TIA symptoms COMPARISON: August 25, 2019 Technique: Duplex sonography of the cervical portion of both carotid arteries was performed. Real-time grayscale, color flow Doppler, and Doppler spectral waveform analysis is performed. PQRS Compliance Statement - Stenosis calculations for CT, MR and conventional angiography are based upon measurement of the distal ICA diameter in accordance with the NASCET methodology. Stenosis calculations for carotid ultrasound studies are derived from validated velocity criteria which are known to correlate with the NASCET methodology. Findings: Right side: Peak systolic flow velocity of the CCA is 68 cm/sec. Peak systolic flow velocity of the ICA is 204 cm/sec. The ICA/CCA ratio is 3. Peak end diastolic flow velocity of the ICA is 41 cm/sec. The peak systolic velocity of the ECA is 101 cm/sec. Mild to moderate plaque within the right carotid bifurcation. Left side: Peak systolic flow velocity of the CCA is 95 cm/sec. Peak systolic flow velocity of the ICA is 673 cm/sec. The ICA/CCA ratio is 7.1. Peak end diastolic flow velocity of the ICA is 440 cm/sec. Peak systolic flow velocity of the ECA is 128 cm/sec. Heavily calcified plaque within the left carotid bifurcation. Vertebral arteries: Bilateral vertebral arteries demonstrate antegrade flow. IMPRESSION: 1. Greater than 70 percent stenosis to near occlusion of the left proximal internal carotid artery, increased compared to prior. 2. 50-69 percent stenosis of the right proximal internal carotid artery. 3. Bilateral atheromatous plaque, left greater than right. Electronically signed by: Umesh Castanon DO (03/22/2020 4:54 PM) [id number]
[2020-03-22 19:15] VITALS: BP 135/79
--- NOTE | 2020-03-22 19:22 | RAD ---
US RENAL DUPLEX History: Hypertensive urgency Comparison: None. Findings: Multiple grayscale, color, duplex spectral analysis waveform images of the kidneys and renal arteries are submitted. Visualized proximal abdominal aortic caliber is within normal limits about 2 cm, otherwise the abdominal aorta obscured by bowel gas and this exam. Right kidney measured 10.8 cm in length. Left kidney measured 11.2 cm in length. There is no hydronephrosis of either kidney. Maximal proximal right renal artery PSV 175 cm per sec. Maximal left renal artery peak systolic velocity proximally about 96 cm/s. Maximal right renal resistive index 0.72, left 0.79. Abdominal aorta systolic velocity 160 cm/s. Impression: 1. There is no demonstrable evidence of a significant stenosis of the renal arteries. Electronically signed by: Lewis Petty MD (03/22/2020 7:19 PM) [facility]
[2020-03-22] MEDS ORDERED: SIMVASTATIN 40 MG TABLET. PO SCH (21:00)
[2020-03-22 23:05] VITALS: BP 135/79
[2020-03-22] MEDS: ATORVASTATIN CALCIUM 10 MG TABLET. PO SCH (23:41)
[2020-03-23 03:00] VITALS: BP 118/73
[2020-03-23 07:15] VITALS: BP 116/85
[2020-03-23] MEDS: ASPIRIN ENTERIC COATED 81 MG TABLET.DR. PO SCH (08:23)
[2020-03-23] MEDS: LISINOPRIL 20 MG TABLET PO SCH ×2 (08:24→22:20)
[2020-03-23] MEDS ORDERED: CONTRAST GIVEN. MC PRN (08:30)
[2020-03-23] MEDS ORDERED: IOHEXOL 300 MG/ML 100ML VIAL. IV ONE (08:30)
--- NOTE | 2020-03-23 09:30 | PDOC ---
PROGRESS NOTES Subjective Subjective Patient seen and examined in room. Patient denies any new symptoms. Patient does report that he was having intermittent right forearm numbness and tingling over the last week, he has not had any any of those symptoms within the last 3 days. Objective Objective Vital Signs Date Time Temp Pulse Resp B/P (MAP) Pulse Ox O2 Delivery O2 Flow Rate FiO2 03/23/20 08:24 68 116/85 03/23/20 08:15 Room Air 03/23/20 07:15 98.2 18 95 98.2 Intake and Output 03/23/20 07:00 Intake Total 1030 ml Balance 1030 ml Intake Oral 1030 ml # Voids 5 Physical Exam Physical Exam Awake and alert Heart rate regular Nonlabored respirations [employer] are equal, speech is clear, no facial asymmetry noted. Moving all extremities without difficulty. Carotid US: Findings: Right side: Peak systolic flow velocity of the CCA is 68 cm/sec. Peak systolic flow velocity of the ICA is 204 cm/sec. The ICA/CCA ratio is 3. Peak end diastolic flow velocity of the ICA is 41 cm/sec. The peak systolic velocity of the ECA is 101 cm/sec. Mild to moderate plaque within the right carotid bifurcation. Left side: Peak systolic flow velocity of the CCA is 95 cm/sec. Peak systolic flow velocity of the ICA is 673 cm/sec. The ICA/CCA ratio is 7.1. Peak end diastolic flow velocity of the ICA is 440 cm/sec. Peak systolic flow velocity of the ECA is 128 cm/sec. Heavily calcified plaque within the left carotid bifurcation. Vertebral arteries: Bilateral vertebral arteries demonstrate antegrade flow. IMPRESSION: 1. Greater than 70 percent stenosis to near occlusion of the left proximal internal carotid artery, increased compared to prior. 2. 50-69 percent stenosis of the right proximal internal carotid artery. 3. Bilateral atheromatous plaque, left greater than right. Assessment Assessment Problems Medical Problems: (1) Anxiety Status: Acute (2) Hypertensive urgency Status: Acute (3) Weakness Status: Acute Plan Plan of Care 59-year-old male with bilateral carotid artery stenosis, patient is status post left carotid endarterectomy in August 2019. Carotid ultrasound demonstrated greater than 70% stenosis of the left carotid artery with an ICA/CCA ratio of 7.1. Recommend CT angiogram for better evaluation. Discussed plan of care with Dr. Denson, if CTA confirms significant left carotid artery stenosis and patient may benefit from a left carotid stent. Discussed plan of care with patient, he is extremely anxious about proceeding with a carotid stent. Recommend patient continue risk factor modification to include smoking cessation, statin therapy and daily aspirin. Discussed the addition of Plavix with patient, patient states he had Plavix during his prior hospitalization and experienced palpitations which were quite concerning to him. Will discuss with Dr. Denson. We will make further recommendations pending the results of the CT angiogram. Discussed plan of care with Dr. Lan. Comment Review of Relevant I have reviewed the following items ashley (where applicable) has been applied. Labs Laboratory Tests Test 03/22/20 04:53 03/22/20 05:22 03/22/20 08:30 03/22/20 11:15 White Blood Count 13.1 x10^3/uL (4.0-11.0) Red Blood Count 5.04 x10^6/uL (4.30-5.70) Hemoglobin 15.2 g/dL (13.0-17.5) Hematocrit 43.4 % (39.0-53.0) Mean Corpuscular Volume 86 fL (79-100) Mean Corpuscular Hemoglobin 30 pg (25-35) Mean Corpuscular Hemoglobin Concent 35 g/dL (31-37) Red Cell Distribution Width 13.4 % (11.5-14.5) Platelet Count 328 x10^3/uL (140-400) Neutrophils (%) (Auto) 67 % (31-73) Lymphocytes (%) (Auto) 24 % (24-48) Monocytes (%) (Auto) 7 % (0-9) Eosinophils (%) (Auto) 2 % (0-3) Basophils (%) (Auto) 1 % (0-3) Neutrophils # (Auto) 8.7 x10^3/uL (1.8-7.7) Lymphocytes # (Auto) 3.2 x10^3/uL (1.0-4.8) Monocytes # (Auto) 0.9 x10^3/uL (0.0-1.1) Eosinophils # (Auto) 0.2 x10^3/uL (0.0-0.7) Basophils # (Auto) 0.1 x10^3/uL (0.0-0.2) Sodium Level 138 mmol/L (136-145) Potassium Level 3.6 mmol/L (3.5-5.1) Chloride Level 100 mmol/L (98-107) Carbon Dioxide Level 26 mmol/L (21-32) Anion Gap 12 (6-14) Blood Urea Nitrogen 22 mg/dL (8-26) Creatinine 0.8 mg/dL (0.7-1.3) Estimated GFR (Cockcroft-Gault) 99.3 BUN/Creatinine Ratio 28 (6-20) Glucose Level 118 mg/dL (70-99) Calcium Level 9.1 mg/dL (8.5-10.1) Magnesium Level 1.8 mg/dL (1.8-2.4) Total Bilirubin 0.8 mg/dL (0.2-1.0) Aspartate Amino Transf (AST/SGOT) 18 U/L (15-37) Alanine Aminotransferase (ALT/SGPT) 28 U/L (16-63) Alkaline Phosphatase 43 U/L (46-116) Creatine Kinase 81 U/L (39-308) Creatine Kinase MB (Mass) 1.4 ng/mL (0.0-3.6) Creatine Kinase MB Relative Index 1.7 % (0-4) Troponin I Quantitative < 0.017 ng/mL (0.000-0.055) < 0.017 ng/mL (0.000-0.055) < 0.017 ng/mL (0.000-0.055) Total Protein 6.5 g/dL (6.4-8.2) Albumin 4.1 g/dL (3.4-5.0) Albumin/Globulin Ratio 1.7 (1.0-1.7) Laboratory Tests Test 03/22/20 11:15 Troponin I Quantitative < 0.017 ng/mL (0.000-0.055) Medications Current Medications Labetalol HCl (Normodyne Iv Push) 10 mg 1X ONCE IVP Last administered on 03/22/20at 05:25; Start 03/22/20 at 05:15; Stop 03/22/20 at 05:16; Status DC Lorazepam (Ativan Inj) 0.5 mg 1X ONCE IVP ; Start 03/22/20 at 05:15; Stop 03/22/20 at 05:16; Status DC Labetalol HCl (Normodyne Iv Push) 10 mg PRN Q4HRS PRN IVP HYPERTENSION; Start 03/22/20 at 05:30 Lorazepam (Ativan Inj) 0.5 mg PRN Q4HRS PRN IVP ANXIETY / AGITATION; Start 03/22/20 at 05:30 Aspirin (Almita Aspirin) 325 mg 1X ONCE PO Last administered on 03/22/20at 05:38; Start 03/22/20 at 05:30; Stop 03/22/20 at 05:31; Status DC Simvastatin (Zocor) 40 mg HS PO ; Start 03/22/20 at 21:00; Stop 03/22/20 at 10:18; Status DC Lisinopril (Prinivil) 40 mg DAILY PO Last administered on 03/22/20at 11:16; Start 03/22/20 at 10:00; Stop 03/22/20 at 13:03; Status DC Amlodipine Besylate (Norvasc) 5 mg DAILY PO ; Start 03/22/20 at 10:30; Stop 03/22/20 at 13:03; Status DC Aspirin (Ecotrin) 81 mg DAILYWBKFT PO Last administered on 03/23/20at 08:23; Start 03/23/20 at 08:00 Atorvastatin Calcium (Lipitor) 10 mg QHS PO Last administered on 03/22/20at 23:41; Start 03/22/20 at 21:00 Lisinopril (Prinivil) 20 mg BID PO Last administered on 03/23/20at 08:24; Start 03/22/20 at 14:00 Iohexol (Omnipaque 300 Mg/ml) 75 ml 1X ONCE IV Last administered on 03/23/20at 08:30; Start 03/23/20 at 08:30; Stop 03/23/20 at 08:31; Status DC Info (CONTRAST GIVEN -- Rx MONITORING) 1 each PRN DAILY PRN MC SEE COMMENTS; Start 03/23/20 at 08:30; Stop 03/25/20 at 08:29 Active Scripts Active Reported Simvastatin 40 Mg Tablet 40 Mg PO HS Lisinopril 40 Mg Tablet 20 PO DAILY Vitals/I & O Vital Sign - Last 24 Hours 03/22/20 03/22/20 03/22/20 03/22/20 11:10 11:13 11:16 11:16 Pulse 69 72 79 79 B/P (MAP) 150/81 (104) 128/85 (99) 124/81 124/81 (95) 03/22/20 03/22/20 03/22/20 03/22/20 15:35 19:15 20:00 23:05 Temp 98.5 98.5 98.5 98.5 98.5 98.5 Pulse 65 68 73 Resp 18 18 18 B/P (MAP) 127/72 (90) 135/79 (97) 135/79 (97) Pulse Ox 97 96 94 O2 Delivery Room Air Room Air Room Air Room Air 03/22/20 03/23/20 03/23/20 03/23/20 23:40 03:00 07:15 08:15 Temp 98.0 98.2 98.0 98.2 Pulse 73 66 68 Resp 18 18 B/P (MAP) 135/79 118/73 (88) 116/85 (95) Pulse Ox 97 95 O2 Delivery Room Air Room Air Room Air 03/23/20 08:24 Pulse 68 B/P (MAP) 116/85 Intake and Output 03/22/20 03/22/20 03/23/20 15:00 23:00 07:00 Intake Total 300 ml 250 ml 480 ml Balance 300 ml 250 ml 480 ml NIRAJ MCGRAW APRN March 23, 2020 09:30
--- NOTE | 2020-03-23 09:33 | RAD ---
Exam: CT ANGIOGRAPHY NECK Date: 03/23/2020 8:14 AM Indication: Abnormal carotid ultrasound, carotid stenosis Comparison: Ultrasound 01/21/2020 Technique: CT angiogram of neck was obtained with bolus injection of 75 mL of Omnipaque 300. The images were sent to workstation and multiplanar reconstructions were obtained. Multiplanar reconstruction images to include MIP and 3-D reconstruction images are submitted. One or more of the following dose reduction techniques were utilized: Automated exposure control (AEC), Adjustment of mA and/or kV according to patient size, Use of iterative reconstruction technique such as ASiR, CT scan done according to ALARA and image gently/image wisely Findings: Right carotid: The right common carotid artery is patent and normal caliber. Atherosclerosis of the carotid bifurcation. 50 percent stenosis of the right internal carotid artery per NASCET criteria. The right external carotid artery is patent. Left carotid: The left common carotid artery is patent and normal caliber. Left carotid endarterectomy. Atherosclerosis of the carotid bifurcation. 50 percent stenosis of the left internal carotid artery per NASCET criteria. The left external carotid artery is patent. 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 Intracranial right vertebral artery is patent, however there is a focal high-grade stenosis. Left vertebral: The left vertebral artery is dominant and widely patent. The visualized portions of the aortic arch are normal. The origins of the brachiocephalic and subclavian arteries are normal. No cervical lymphadenopathy. The thyroid gland is normal. The parotid and submandibular glands are normal. The visualized aerodigestive tract is unremarkable. Moderate multilevel degenerative disc height loss. Multilevel disc protrusions and marginal osteophytes results in multilevel spinal canal stenosis. Multilevel uncovertebral and facet arthrosis with multilevel neural foraminal narrowing. The visualized portions of the lungs are clear. Impression: 1. Atherosclerosis of the cervical ICAs with 50 percent stenosis on the right and 60 percent stenosis on the left. Prior left carotid endarterectomy. 2. 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 Intracranial right vertebral artery is patent, but demonstrates focal high-grade stenosis. 3. Dominant left vertebral artery is widely patent. PQRS Compliance Statement - Stenosis calculations for CT, MR and conventional angiography are based upon measurement of the distal ICA diameter in accordance with the NASCET methodology. Electronically signed by: Lewis Yuen MD (03/23/2020 9:30 AM) [id number]
--- NOTE | 2020-03-23 10:10 | PDOC ---
PROGRESS NOTES History of Present Illness History of Present Illness VTE Prophylaxis Ordered VTE Prophylaxis Devices: No VTE Pharmacological Prophylaxi: No IMPRESSION Assessment/Plan accelerated hypertension orthostatic hypotension anxiety of health condition hx of carotid stenosis and surgery with Dr. 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 Intracranial right vertebral artery is patent, but demonstrates focal high-grade stenosis. Atherosclerosis of the cervical ICAs with 50 percent stenosis on the right and 60 percent stenosis on the left. Prior left carotid endarterectomy. CT angiogram for better evaluation. consult cardio, taking 20 mg lisinopril only, and checking 3 times a day and gets upset if he gets ANY high readings, needs reassurance bp control Okay for discharge today per neurology await vascular recommendations Outpatient EMG study 28 min pt exam, chart review, > 50% of time spent with exam, chart review, pt care coordination Vitals Vitals Vital Signs Date Time Temp Pulse Resp B/P (MAP) Pulse Ox O2 Delivery O2 Flow Rate FiO2 03/23/20 08:24 68 116/85 03/23/20 08:15 Room Air 03/23/20 07:15 98.2 18 95 98.2 Physical Exam General: Alert, Oriented X3, Cooperative, No acute distress Heart: Regular rate, Normal S1, Normal S2 Lungs: Clear Abdomen: Normal bowel sounds, Soft, No tenderness Extremities: No cyanosis, No edema, Normal pulses Skin: No breakdown, No significant lesion Labs LABS Exam: CT ANGIOGRAPHY NECK Date: 03/23/2020 8:14 AM Indication: Abnormal carotid ultrasound, carotid stenosis Comparison: Ultrasound 01/21/2020 Technique: CT angiogram of neck was obtained with bolus injection of 75 mL of Omnipaque 300. The images were sent to workstation and multiplanar reconstructions were obtained. Multiplanar reconstruction images to include MIP and 3-D reconstruction images are submitted. One or more of the following dose reduction techniques were utilized: Automated exposure control (AEC), Adjustment of mA and/or kV according to patient size, Use of iterative reconstruction technique such as ASiR, CT scan done according to ALARA and image gently/image wisely Findings: Right carotid: The right common carotid artery is patent and normal caliber. Atherosclerosis of the carotid bifurcation. 50 percent stenosis of the right internal carotid artery per NASCET criteria. The right external carotid artery is patent. Left carotid: The left common carotid artery is patent and normal caliber. Left carotid endarterectomy. Atherosclerosis of the carotid bifurcation. 50 percent stenosis of the left internal carotid artery per NASCET criteria. The left external carotid artery is patent. 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 Intracranial right vertebral artery is patent, however there is a focal high-grade stenosis. Left vertebral: The left vertebral artery is dominant and widely patent. The visualized portions of the aortic arch are normal. The origins of the brachiocephalic and subclavian arteries are normal. No cervical lymphadenopathy. The thyroid gland is normal. The parotid and submandibular glands are normal. The visualized aerodigestive tract is unremarkable. Moderate multilevel degenerative disc height loss. Multilevel disc protrusions and marginal osteophytes results in multilevel spinal canal stenosis. Multilevel uncovertebral and facet arthrosis with multilevel neural foraminal narrowing. The visualized portions of the lungs are clear. Impression: 1. Atherosclerosis of the cervical ICAs with 50 percent stenosis on the right and 60 percent stenosis on the left. Prior left carotid endarterectomy. 2. 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 Intracranial right vertebral artery is patent, but demonstrates focal high-grade stenosis. 3. Dominant left vertebral artery is widely patent. PQRS Compliance Statement - Stenosis calculations for CT, MR and conventional angiography are based upon measurement of the distal ICA diameter in accordance with the NASCET methodology. Electronically signed by: Petey Bay MD (03/23/2020 9:30 AM) [id number] DICTATED and SIGNED BY: PETEY BAY MD DATE: 03/23/2030 Laboratory Tests Test 03/22/20 11:15 Troponin I Quantitative < 0.017 ng/mL (0.000-0.055) Assessment and Plan Assessmemt and Plan Problems Medical Problems: (1) Anxiety Status: Acute (2) Hypertensive urgency Status: Acute (3) Weakness Status: Acute Comment Review of Relevant I have reviewed the following items ashley (where applicable) has been applied. Labs Laboratory Tests Test 03/22/20 04:53 03/22/20 05:22 03/22/20 08:30 03/22/20 11:15 White Blood Count 13.1 x10^3/uL (4.0-11.0) Red Blood Count 5.04 x10^6/uL (4.30-5.70) Hemoglobin 15.2 g/dL (13.0-17.5) Hematocrit 43.4 % (39.0-53.0) Mean Corpuscular Volume 86 fL (79-100) Mean Corpuscular Hemoglobin 30 pg (25-35) Mean Corpuscular Hemoglobin Concent 35 g/dL (31-37) Red Cell Distribution Width 13.4 % (11.5-14.5) Platelet Count 328 x10^3/uL (140-400) Neutrophils (%) (Auto) 67 % (31-73) Lymphocytes (%) (Auto) 24 % (24-48) Monocytes (%) (Auto) 7 % (0-9) Eosinophils (%) (Auto) 2 % (0-3) Basophils (%) (Auto) 1 % (0-3) Neutrophils # (Auto) 8.7 x10^3/uL (1.8-7.7) Lymphocytes # (Auto) 3.2 x10^3/uL (1.0-4.8) Monocytes # (Auto) 0.9 x10^3/uL (0.0-1.1) Eosinophils # (Auto) 0.2 x10^3/uL (0.0-0.7) Basophils # (Auto) 0.1 x10^3/uL (0.0-0.2) Sodium Level 138 mmol/L (136-145) Potassium Level 3.6 mmol/L (3.5-5.1) Chloride Level 100 mmol/L (98-107) Carbon Dioxide Level 26 mmol/L (21-32) Anion Gap 12 (6-14) Blood Urea Nitrogen 22 mg/dL (8-26) Creatinine 0.8 mg/dL (0.7-1.3) Estimated GFR (Cockcroft-Gault) 99.3 BUN/Creatinine Ratio 28 (6-20) Glucose Level 118 mg/dL (70-99) Calcium Level 9.1 mg/dL (8.5-10.1) Magnesium Level 1.8 mg/dL (1.8-2.4) Total Bilirubin 0.8 mg/dL (0.2-1.0) Aspartate Amino Transf (AST/SGOT) 18 U/L (15-37) Alanine Aminotransferase (ALT/SGPT) 28 U/L (16-63) Alkaline Phosphatase 43 U/L (46-116) Creatine Kinase 81 U/L (39-308) Creatine Kinase MB (Mass) 1.4 ng/mL (0.0-3.6) Creatine Kinase MB Relative Index 1.7 % (0-4) Troponin I Quantitative < 0.017 ng/mL (0.000-0.055) < 0.017 ng/mL (0.000-0.055) < 0.017 ng/mL (0.000-0.055) Total Protein 6.5 g/dL (6.4-8.2) Albumin 4.1 g/dL (3.4-5.0) Albumin/Globulin Ratio 1.7 (1.0-1.7) Laboratory Tests Test 03/22/20 11:15 Troponin I Quantitative < 0.017 ng/mL (0.000-0.055) Medications Current Medications Labetalol HCl (Normodyne Iv Push) 10 mg 1X ONCE IVP Last administered on 03/22/20at 05:25; Start 03/22/20 at 05:15; Stop 03/22/20 at 05:16; Status DC Lorazepam (Ativan Inj) 0.5 mg 1X ONCE IVP ; Start 03/22/20 at 05:15; Stop 03/22/20 at 05:16; Status DC Labetalol HCl (Normodyne Iv Push) 10 mg PRN Q4HRS PRN IVP HYPERTENSION; Start 03/22/20 at 05:30 Lorazepam (Ativan Inj) 0.5 mg PRN Q4HRS PRN IVP ANXIETY / AGITATION; Start 03/22/20 at 05:30 Aspirin (Almita Aspirin) 325 mg 1X ONCE PO Last administered on 03/22/20at 05:38; Start 03/22/20 at 05:30; Stop 03/22/20 at 05:31; Status DC Simvastatin (Zocor) 40 mg HS PO ; Start 03/22/20 at 21:00; Stop 03/22/20 at 10:18; Status DC Lisinopril (Prinivil) 40 mg DAILY PO Last administered on 03/22/20at 11:16; Start 03/22/20 at 10:00; Stop 03/22/20 at 13:03; Status DC Amlodipine Besylate (Norvasc) 5 mg DAILY PO ; Start 03/22/20 at 10:30; Stop 03/22/20 at 13:03; Status DC Aspirin (Ecotrin) 81 mg DAILYWBKFT PO Last administered on 03/23/20at 08:23; Start 03/23/20 at 08:00 Atorvastatin Calcium (Lipitor) 10 mg QHS PO Last administered on 03/22/20at 23:4 1; Start 03/22/20 at 21:00 Lisinopril (Prinivil) 20 mg BID PO Last administered on 03/23/20at 08:24; Start 03/22/20 at 14:00 Iohexol (Omnipaque 300 Mg/ml) 75 ml 1X ONCE IV Last administered on 03/23/20at 08:30; Start 03/23/20 at 08:30; Stop 03/23/20 at 08:31; Status DC Info (CONTRAST GIVEN -- Rx MONITORING) 1 each PRN DAILY PRN MC SEE COMMENTS; Start 03/23/20 at 08:30; Stop 03/25/20 at 08:29 Active Scripts Active Reported Simvastatin 40 Mg Tablet 40 Mg PO HS Lisinopril 40 Mg Tablet 20 PO DAILY Vitals/I & O Vital Sign - Last 24 Hours 03/22/20 03/22/20 03/22/20 03/22/20 11:10 11:13 11:16 11:16 Pulse 69 72 79 79 B/P (MAP) 150/81 (104) 128/85 (99) 124/81 124/81 (95) 03/22/20 03/22/20 03/22/20 03/22/20 15:35 19:15 20:00 23:05 Temp 98.5 98.5 98.5 98.5 98.5 98.5 Pulse 65 68 73 Resp 18 18 18 B/P (MAP) 127/72 (90) 135/79 (97) 135/79 (97) Pulse Ox 97 96 94 O2 Delivery Room Air Room Air Room Air Room Air 03/22/20 03/23/20 03/23/20 03/23/20 23:40 03:00 07:15 08:15 Temp 98.0 98.2 98.0 98.2 Pulse 73 66 68 Resp 18 18 B/P (MAP) 135/79 118/73 (88) 116/85 (95) Pulse Ox 97 95 O2 Delivery Room Air Room Air Room Air 03/23/20 08:24 Pulse 68 B/P (MAP) 116/85 Intake and Output 03/22/20 03/22/20 03/23/20 15:00 23:00 07:00 Intake Total 300 ml 250 ml 480 ml Balance 300 ml 250 ml 480 ml GUNJAN QUICK MD March 23, 2020 10:10
[2020-03-23 11:00] VITALS: BP 132/76
--- NOTE | 2020-03-23 11:01 | PDOC ---
PROGRESS NOTES Assessment Problems Medical Problems: (1) Anxiety Status: Acute (2) Hypertensive urgency Status: Acute (3) Weakness Status: Acute Various neurological symptoms, doubt transient ischemic attacks. Consider hypertensive encephalopathy, cervical and lumbar stenosis (Had mildly abnormal cervical MRI, 09/04/19, also had a lumbar MRI in [place]), peripheral entrapment neuropathy, anxiety. Possible left carotid re-stenosis Right vertebral artery disease Plan CT angiogram, already done, reviewed below. No need for repeat vascular surgery Okay for discharge today Outpatient EMG study Subjective No new complaints Objective Vital Signs Date Time Temp Pulse Resp B/P (MAP) Pulse Ox O2 Delivery O2 Flow Rate FiO2 03/23/20 08:24 68 116/85 03/23/20 08:15 Room Air 03/23/20 07:15 98.2 18 95 98.2 Intake and Output 03/23/20 07:00 Intake Total 1030 ml Balance 1030 ml Intake Oral 1030 ml # Voids 5 PHYSICAL EXAM Physical Exam: Alert. Oriented to time, place and person. Hard of hearing PERRL. EOMI. CN: no focal findings. Muscle tone: normal. Muscle strength: 03/22 DTR: 2+ Plantar reflex: flexor Gait: not examined Sensory exam: no abnormal findings. No cerebellar signs elicited. Review of Relevant I have reviewed the following items ashley (where applicable) has been applied. Labs Laboratory Tests Test 03/22/20 04:53 03/22/20 05:22 03/22/20 08:30 03/22/20 11:15 White Blood Count 13.1 x10^3/uL (4.0-11.0) Red Blood Count 5.04 x10^6/uL (4.30-5.70) Hemoglobin 15.2 g/dL (13.0-17.5) Hematocrit 43.4 % (39.0-53.0) Mean Corpuscular Volume 86 fL (79-100) Mean Corpuscular Hemoglobin 30 pg (25-35) Mean Corpuscular Hemoglobin Concent 35 g/dL (31-37) Red Cell Distribution Width 13.4 % (11.5-14.5) Platelet Count 328 x10^3/uL (140-400) Neutrophils (%) (Auto) 67 % (31-73) Lymphocytes (%) (Auto) 24 % (24-48) Monocytes (%) (Auto) 7 % (0-9) Eosinophils (%) (Auto) 2 % (0-3) Basophils (%) (Auto) 1 % (0-3) Neutrophils # (Auto) 8.7 x10^3/uL (1.8-7.7) Lymphocytes # (Auto) 3.2 x10^3/uL (1.0-4.8) Monocytes # (Auto) 0.9 x10^3/uL (0.0-1.1) Eosinophils # (Auto) 0.2 x10^3/uL (0.0-0.7) Basophils # (Auto) 0.1 x10^3/uL (0.0-0.2) Sodium Level 138 mmol/L (136-145) Potassium Level 3.6 mmol/L (3.5-5.1) Chloride Level 100 mmol/L (98-107) Carbon Dioxide Level 26 mmol/L (21-32) Anion Gap 12 (6-14) Blood Urea Nitrogen 22 mg/dL (8-26) Creatinine 0.8 mg/dL (0.7-1.3) Estimated GFR (Cockcroft-Gault) 99.3 BUN/Creatinine Ratio 28 (6-20) Glucose Level 118 mg/dL (70-99) Calcium Level 9.1 mg/dL (8.5-10.1) Magnesium Level 1.8 mg/dL (1.8-2.4) Total Bilirubin 0.8 mg/dL (0.2-1.0) Aspartate Amino Transf (AST/SGOT) 18 U/L (15-37) Alanine Aminotransferase (ALT/SGPT) 28 U/L (16-63) Alkaline Phosphatase 43 U/L (46-116) Creatine Kinase 81 U/L (39-308) Creatine Kinase MB (Mass) 1.4 ng/mL (0.0-3.6) Creatine Kinase MB Relative Index 1.7 % (0-4) Troponin I Quantitative < 0.017 ng/mL (0.000-0.055) < 0.017 ng/mL (0.000-0.055) < 0.017 ng/mL (0.000-0.055) Total Protein 6.5 g/dL (6.4-8.2) Albumin 4.1 g/dL (3.4-5.0) Albumin/Globulin Ratio 1.7 (1.0-1.7) Laboratory Tests Test 03/22/20 11:15 Troponin I Quantitative < 0.017 ng/mL (0.000-0.055) Medications Current Medications Labetalol HCl (Normodyne Iv Push) 10 mg 1X ONCE IVP Last administered on 03/22/20at 05:25; Start 03/22/20 at 05:15; Stop 03/22/20 at 05:16; Status DC Lorazepam (Ativan Inj) 0.5 mg 1X ONCE IVP ; Start 03/22/20 at 05:15; Stop 03/22/20 at 05:16; Status DC Labetalol HCl (Normodyne Iv Push) 10 mg PRN Q4HRS PRN IVP HYPERTENSION; Start 03/22/20 at 05:30 Lorazepam (Ativan Inj) 0.5 mg PRN Q4HRS PRN IVP ANXIETY / AGITATION; Start 03/22/20 at 05:30 Aspirin ([place] Aspirin) 325 mg 1X ONCE PO Last administered on 03/22/20at 05:38; Start 03/22/20 at 05:30; Stop 03/22/20 at 05:31; Status DC Simvastatin (Zocor) 40 mg HS PO ; Start 03/22/20 at 21:00; Stop 03/22/20 at 10:18; Status DC Lisinopril (Prinivil) 40 mg DAILY PO Last administered on 03/22/20at 11:16; Start 03/22/20 at 10:00; Stop 03/22/20 at 13:03; Status DC Amlodipine Besylate (Norvasc) 5 mg DAILY PO ; Start 03/22/20 at 10:30; Stop 03/22/20 at 13:03; Status DC Aspirin (Ecotrin) 81 mg DAILYWBKFT PO Last administered on 03/23/20at 08:23; Start 03/23/20 at 08:00 Atorvastatin Calcium (Lipitor) 10 mg QHS PO Last administered on 03/22/20at 23:41; Start 03/22/20 at 21:00 Lisinopril (Prinivil) 20 mg BID PO Last administered on 03/23/20at 08:24; Start 03/22/20 at 14:00 Iohexol (Omnipaque 300 Mg/ml) 75 ml 1X ONCE IV Last administered on 03/23/20at 08:30; Start 03/23/20 at 08:30; Stop 03/23/20 at 08:31; Status DC Info (CONTRAST GIVEN -- Rx MONITORING) 1 each PRN DAILY PRN MC SEE COMMENTS; Start 03/23/20 at 08:30; Stop 03/25/20 at 08:29 Active Scripts Active Reported Simvastatin 40 Mg Tablet 40 Mg PO HS Lisinopril 40 Mg Tablet 20 PO DAILY Vitals/I & O Vital Sign - Last 24 Hours 03/22/20 03/22/20 03/22/20 03/22/20 11:10 11:13 11:16 11:16 Pulse 69 72 79 79 B/P (MAP) 150/81 (104) 128/85 (99) 124/81 124/81 (95) 03/22/20 03/22/20 03/22/20 03/22/20 15:35 19:15 20:00 23:05 Temp 98.5 98.5 98.5 98.5 98.5 98.5 Pulse 65 68 73 Resp 18 18 18 B/P (MAP) 127/72 (90) 135/79 (97) 135/79 (97) Pulse Ox 97 96 94 O2 Delivery Room Air Room Air Room Air Room Air 03/22/20 03/23/20 03/23/20 03/23/20 23:40 03:00 07:15 08:15 Temp 98.0 98.2 98.0 98.2 Pulse 73 66 68 Resp 18 18 B/P (MAP) 135/79 118/73 (88) 116/85 (95) Pulse Ox 97 95 O2 Delivery Room Air Room Air Room Air 03/23/20 08:24 Pulse 68 B/P (MAP) 116/85 Intake and Output 03/22/20 03/22/20 03/23/20 15:00 23:00 07:00 Intake Total 300 ml 250 ml 480 ml Balance 300 ml 250 ml [address] ANGIOGRAPHY NECK Date: 03/23/2020 8:14 AM Indication: Abnormal carotid ultrasound, carotid stenosis Comparison: Ultrasound 01/21/2020 Technique: CT angiogram of neck was obtained with bolus injection of 75 mL of Omnipaque 300. The images were sent to workstation and multiplanar reconstructions were obtained. Multiplanar reconstruction images to include MIP and 3-D reconstruction images are submitted. One or more of the following dose reduction techniques were utilized: Automated exposure control (AEC), Adjustment of mA and/or kV according to patient size, Use of iterative reconstruction technique such as ASiR, CT scan done according to ALARA and image gently/image wisely Findings: Right carotid: The right common carotid artery is patent and normal caliber. Atherosclerosis of the carotid bifurcation. 50 percent stenosis of the right internal carotid artery per NASCET criteria. The right external carotid artery is patent. Left carotid: The left common carotid artery is patent and normal caliber. Left carotid endarterectomy. Atherosclerosis of the carotid bifurcation. 50 percent stenosis of the left internal carotid artery per NASCET criteria. The left external carotid artery is patent. 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 Intracranial right vertebral artery is patent, however there is a focal high-grade stenosis. Left vertebral: The left vertebral artery is dominant and widely patent. The visualized portions of the aortic arch are normal. The origins of the brachiocephalic and subclavian arteries are normal. No cervical lymphadenopathy. The thyroid gland is normal. The parotid and submandibular glands are normal. The visualized aerodigestive tract is unremarkable. Moderate multilevel degenerative disc height loss. Multilevel disc protrusions and marginal osteophytes results in multilevel spinal canal stenosis. Multilevel uncovertebral and facet arthrosis with multilevel neural foraminal narrowing. The visualized portions of the lungs are clear. Impression: 1. Atherosclerosis of the cervical ICAs with 50 percent stenosis on the right and 60 percent stenosis on the left. Prior left carotid endarterectomy. 2. 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 Intracranial right vertebral artery is patent, but demonstrates focal high-grade stenosis. 3. Dominant left vertebral artery is widely patent. Brain MRI without contrast. HISTORY: Transient ischemic attack. TECHNIQUE: Multiplanar, multisequence magnetic resonance imaging of the brain was performed without contrast. COMPARISON: CT obtained on the same date. FINDINGS: There is no restricted diffusion to suggest acute or subacute infarction. There is no susceptibility effect to suggest hemorrhage. There is no mass effect or midline shift. There is no hydrocephalus. There are scattered focal areas of signal change within the cerebral white matter, likely due to chronic small vessel disease. There are tiny chronic lacunar infarcts involving the right caudate nucleus and adjacent frontal white matter. There is a tiny focus of encephalomalacia within the right cerebellum, also likely due to chronic infarction. The orbits, paranasal sinuses and mastoid air cells are unremarkable. There is decreased flow void within the distal right vertebral artery at the level of the skull base. This is not seen on coronal images and is likely due to skull base artifact rather than low flow or occlusion. IMPRESSION: 1. No acute intracranial finding. 2. Scattered areas of signal change within the cerebral white matter, most likely due to chronic small vessel disease. 3. Tiny chronic lacunar infarcts within the right caudate nucleus and adjacent frontal white matter. There is also a suspected tiny chronic infarct within the right cerebellum. 4. Decreased flow void within the distal right vertebral artery at the skull base. This most likely due to artifact. CT angiography or MR angiography can be performed to the concern for low flow or segmental occlusion. DOPPLER CAROTID BILAT History: TIA symptoms COMPARISON: August 25, 2019 Technique: Duplex sonography of the cervical portion of both carotid arteries was performed. Real-time grayscale, color flow Doppler, and Doppler spectral waveform analysis is performed. PQRS Compliance Statement - Stenosis calculations for CT, MR and conventional angiography are based upon measurement of the distal ICA diameter in accordance with the NASCET methodology. Stenosis calculations for carotid ultrasound studies are derived from validated velocity criteria which are known to correlate with the NASCET methodology. Findings: Right side: Peak systolic flow velocity of the CCA is 68 cm/sec. Peak systolic flow velocity of the ICA is 204 cm/sec. The ICA/CCA ratio is 3. Peak end diastolic flow velocity of the ICA is 41 cm/sec. The peak systolic velocity of the ECA is 101 cm/sec. Mild to moderate plaque within the right carotid bifurcation. Left side: Peak systolic flow velocity of the CCA is 95 cm/sec. Peak systolic flow velocity of the ICA is 673 cm/sec. The ICA/CCA ratio is 7.1. Peak end diastolic flow velocity of the ICA is 440 cm/sec. Peak systolic flow velocity of the ECA is 128 cm/sec. Heavily calcified plaque within the left carotid bifurcation. Vertebral arteries: Bilateral vertebral arteries demonstrate antegrade flow. IMPRESSION: 1. Greater than 70 percent stenosis to near occlusion of the left proximal internal carotid artery, increased compared to prior. 2. 50-69 percent stenosis of the right proximal internal carotid artery. 3. Bilateral atheromatous plaque, left greater than right. CERVICAL SPINE WO CONTRAST DATE: 08/25/2019 2:45 PM INDICATION: TECHNIQUE: Multiplanar multisequence magnetic resonance imaging of the cervical spine was performed without administration of intravenous contrast using the standard cervical spine protocol. COMPARISON: None. FINDINGS: The cervical spine is normally aligned. No acute fracture. Mild multilevel degenerative disc desiccation and disc height loss. Mild degenerative endplate edema at C6-7. The spinal cord is normal in signal intensity. On the limited views of the cranial cavity and brain, the cerebellum and allen have normal morphology and signal characteristics. No Chiari malformation. No soft tissue abnormality. Abnormal flow void in the right high cervical and intracranial vertebral artery. C2-3: No significant spinal canal stenosis or neural foraminal narrowing. C3-4: No significant spinal canal stenosis or neural foraminal narrowing. C4-5: Disc osteophyte complex. No significant spinal stenosis or neural foraminal narrowing. C5-6: Disc osteophyte complex. Mild spinal stenosis. No significant neuroforaminal narrowing. C6-7: Disc osteophyte complex. Mild spinal stenosis. No significant neuroforaminal narrowing. C7-T1: No significant spinal canal stenosis or neural foraminal narrowing. IMPRESSION: 1. Mild cervical spondylosis, detailed level by level above. 2. Abnormal flow void in the right high cervical and intracranial vertebral artery, which may indicate stenosis or occlusion. This could be further characterized with CTA or MRA. PRABHAKAR HINES MD March 23, 2020 11:01
--- NOTE | 2020-03-23 11:41 | PDOC ---
TIN THOMPSON APRN 03/23/20 1141: CARDIO Progress Notes Date and Time Date of Service 03/23/20 Time of Evaluation 1110 Subjective Subjective: No Chest Pain, No shortness of breath, No Palpitations, No Dizziness Vitals Vitals Vital Signs Date Time Temp Pulse Resp B/P (MAP) Pulse Ox O2 Delivery O2 Flow Rate FiO2 03/23/20 11:00 98.6 72 16 132/76 (94) 96 Room Air 98.6 Weight Weight [ ] Input and Output Intake and Output Intake and Output 03/23/20 07:00 Intake Total 1030 ml Balance 1030 ml Intake Oral 1030 ml # Voids 5 Physical Exam HEENT: Neck Supple W Full Motion Chest: Symmetric LUNGS: Clear to Auscultation Heart: S1S2, RRR Abdomen: Soft N/T Extremities: No Edema Neurology: alert, oriented, follow commands Assessment Assessment 1. Hypertensive urgency; now well controlled 2. Intermittent bilateral LE heaviness/weakness; last 10-15 seconds and resolves without intervention. ? spinal stenosis. Doubt cardiac etiology. neuro following 3. Carotid disease; s/p recent left carotid endarterectomy at . CTA without significant re-stenosis. As per vascular surgery 4. Hyperlipidemia; statin 5. Tobaccoism; in remission 6. Anxiety Recommendations Continue lisinopril BID ASA, statin Outpatient echocardiogram to assess LV systolic function Consider outpatient stress test given risk factors. Patient initially would like further cardiac workup to be conducted at , but now considering having performed here at [facility]. Our office contact information was provided. Supportive care. JONATHAN MERCADO MD 03/23/20 1614: CARDIO Progress Notes Assessment Assessment Patient seen and examined I agree with her nurses assessment and plan. Hypertensive urgency; now well controlled. On lisinopril twice daily Intermittent bilateral LE heaviness/weakness; last 10-15 seconds and resolves without intervention. ? spinal stenosis. Doubt cardiac etiology. neuro following Carotid disease; s/p recent left carotid endarterectomy at . CTA without significant re-stenosis. As per vascular surgery. Continuing aspirin Hyperlipidemia; statin TIN THOMPSON APRN March 23, 2020 11:41 JONATHAN MERCADO MD March 23, 2020 16:14
--- NOTE | 2020-03-23 13:03 | NUR ---
BRENDA following. Discussed with RN, pt mentioned to RN about possibly transferring to , can't see this in any physician notes. Pt possibly discharging home today. BRENDA will continue to follow. Addendum: 03/24/20 at 1108 by JOYA GUTIERREZ BRENDA following. Discussed with RN, pt discharging home today with self care. No SW needs.
[2020-03-23 15:02] VITALS: BP 122/86
[2020-03-23 15:47] LABS: BASO # 0.1 x10^3/uL (0.0-0.2); BASO % 0 % (0-3); EOS # 0.1 x10^3/uL (0.0-0.7); EOS % 1 % (0-3); HEMATOCRIT 43.2 % (39.0-53.0); LYMPH # 2.4 x10^3/uL (1.0-4.8); LYMPH % 18 % (24-48); MEAN CORPUSCULAR HEMOGLOBIN 30 pg (25-35); MEAN CORPUSCULAR HGB CONC 35 g/dL (31-37); MEAN CORPUSCULAR VOLUME 87 fL (79-100); MONO # 0.7 x10^3/uL (0.0-1.1); MONO % 6 % (0-9); NEUT # 9.9 x10^3/uL (1.8-7.7); NEUT % 75 % (31-73); PLATELET COUNT 317 x10^3/uL (140-400); RED BLOOD COUNT 4.95 x10^6/uL (4.30-5.70); RED CELL DISTRIBUTION WIDTH 13.1 % (11.5-14.5); WHITE BLOOD COUNT 13.1 x10^3/uL (4.0-11.0)
[2020-03-23 15:58] LABS: CALCIUM 8.8 mg/dL (8.5-10.1); CREATININE 0.9 mg/dL (0.7-1.3); GFR 86.7; POTASSIUM 4.2 mmol/L (3.5-5.1)
[2020-03-23 18:03] LABS: BILIRUBIN,URINE NEGATIVE (NEG); CLARITY,URINE CLEAR; COLOR,URINE YELLOW; NITRITE,URINE NEGATIVE (NEG); PH,URINE 5.5 (<5.0-8.0); PROTEIN,URINE NEGATIVE (NEG-TRACE)
[2020-03-23 18:12] LABS: BARBITURATES NEG (NEG); BENZODIAZEPINES NEG (NEG); CANNABINOIDS NEG (NEG); COCAINE NEG (NEG); METHADONE NEG (NEG); OPIATES NEG (NEG); PHENCYCLIDINE NEG (NEG)
[2020-03-23 18:14] LABS: AMPHETAMINE/METHAMPHETAMINE NEG (NEG)
[2020-03-23 18:17] LABS: BACTERIA,URINE 0 /HPF (0-FEW); RBC,URINE 0 /HPF (0-2); WBC,URINE 0 /HPF (0-4)
[2020-03-23 19:55] VITALS: BP 146/77
[2020-03-23] MEDS: ATORVASTATIN CALCIUM 10 MG TABLET. PO SCH (22:20)
[2020-03-23 22:45] VITALS: BP 143/87
[2020-03-24 03:16] VITALS: BP 125/79
[2020-03-24 07:15] VITALS: BP 141/86
[2020-03-24] MEDS: LISINOPRIL 20 MG TABLET PO SCH (08:02)
[2020-03-24] MEDS: ASPIRIN ENTERIC COATED 81 MG TABLET.DR. PO SCH (08:02)
--- NOTE | 2020-03-24 09:26 | PDOC ---
PROGRESS NOTES Subjective Subjective I am just waiting to find out if I need a stent. I would really rather not have to have one. He denies chest pain and shortness of breath. He denies any additional strokeli ke symptoms. He denies any transient numbness, weakness or clumsiness of the hand arm or leg. He denies facial drooping, garbled speech and amaurosis. Carotid US: Findings: Right side: Peak systolic flow velocity of the CCA is 68 cm/sec. Peak systolic flow velocity of the ICA is 204 cm/sec. The ICA/CCA ratio is 3. Peak end diastolic flow velocity of the ICA is 41 cm/sec. The peak systolic velocity of the ECA is 101 cm/sec. Mild to moderate plaque within the right carotid bifurcation. Left side: Peak systolic flow velocity of the CCA is 95 cm/sec. Peak systolic flow velocity of the ICA is 673 cm/sec. The ICA/CCA ratio is 7.1. Peak end diastolic flow velocity of the ICA is 440 cm/sec. Peak systolic flow velocity of the ECA is 128 cm/sec. Heavily calcified plaque within the left carotid bifurcation. Vertebral arteries: Bilateral vertebral arteries demonstrate antegrade flow. IMPRESSION: 1. Greater than 70 percent stenosis to near occlusion of the left proximal internal carotid artery, increased compared to prior. 2. 50-69 percent stenosis of the right proximal internal carotid artery. 3. Bilateral atheromatous plaque, left greater than right. Because of the carotid ultrasound findings he had a CTA of the neck yesterday, 03/23/2020 Impression: 1. Atherosclerosis of the cervical ICAs with 50 percent stenosis on the right and 60 percent stenosis on the left. Prior left carotid endarterectomy. 2. 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 Intracranial right vertebral artery is patent, but demonstrates focal high-grade stenosis. 3. Dominant left vertebral artery is widely patent. Objective Objective Vital Signs Date Time Temp Pulse Resp B/P (MAP) Pulse Ox O2 Delivery O2 Flow Rate FiO2 03/24/20 08:06 Room Air 03/24/20 08:02 81 141/86 03/24/20 07:15 98.0 18 97 98.0 Intake and Output 03/24/20 07:00 Intake Total 920 ml Balance 920 ml Intake Oral 920 ml Physical Exam Physical Exam He is sitting up at the bedside, alert and oriented. His phonation is normal. 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 His smile is symmetrical and his tongue protrudes midline. His respirations are unlabored. He is in no acute distress. He has a well-healed left neck scar. Extremities: No edema General: Cooperative HEENT: Atraumatic Neuro: Normal speech Psych/Mental Status: Mental status NL, Mood NL Skin: No rashes Diagnosis DIAGNOSIS Recurrent left carotid ultrasound by carotid Doppler. 50% right internal carotid stenosis and 60% left internal carotid stenosis by CTA. Assessment Assessment Problems Medical Problems: (1) Anxiety Status: Acute (2) Hypertensive urgency Status: Acute (3) Weakness Status: Acute Plan Plan of Care 59-year-old male with bilateral carotid artery stenosis, patient is status post left carotid endarterectomy in August 2019. Carotid ultrasound demonstrated greater than 70% stenosis of the left carotid artery with an ICA/CCA ratio of 7.1. CTA showed approximately 60% left carotid stenosis. I believe Dr. Brunson has reviewed the CTA although I do not know his recommendations for plan of care at this time. As soon as I find out I will let the nurse and the patient know. The patient gave me his cell phone number [phone]. If he continues to be symptomatic with left hemispheric TIA's or stroke, he would benefit from additional antiplatelet or anticoagulant agents. Since he cannot tolerate Plavix, we might consider Brilinta. Recommend patient continue risk factor modification to include smoking cessation, statin therapy and daily aspirin. Comment Review of Relevant I have reviewed the following items ashley (where applicable) has been applied. Labs Laboratory Tests Test 03/22/20 11:15 03/23/20 15:40 03/23/20 17:35 Troponin I Quantitative < 0.017 ng/mL (0.000-0.055) White Blood Count 13.1 x10^3/uL (4.0-11.0) Red Blood Count 4.95 x10^6/uL (4.30-5.70) Hemoglobin 15.0 g/dL (13.0-17.5) Hematocrit 43.2 % (39.0-53.0) Mean Corpuscular Volume 87 fL (79-100) Mean Corpuscular Hemoglobin 30 pg (25-35) Mean Corpuscular Hemoglobin Concent 35 g/dL (31-37) Red Cell Distribution Width 13.1 % (11.5-14.5) Platelet Count 317 x10^3/uL (140-400) Neutrophils (%) (Auto) 75 % (31-73) Lymphocytes (%) (Auto) 18 % (24-48) Monocytes (%) (Auto) 6 % (0-9) Eosinophils (%) (Auto) 1 % (0-3) Basophils (%) (Auto) 0 % (0-3) Neutrophils # (Auto) 9.9 x10^3/uL (1.8-7.7) Lymphocytes # (Auto) 2.4 x10^3/uL (1.0-4.8) Monocytes # (Auto) 0.7 x10^3/uL (0.0-1.1) Eosinophils # (Auto) 0.1 x10^3/uL (0.0-0.7) Basophils # (Auto) 0.1 x10^3/uL (0.0-0.2) Sodium Level 139 mmol/L (136-145) Potassium Level 4.2 mmol/L (3.5-5.1) Chloride Level 101 mmol/L (98-107) Carbon Dioxide Level 29 mmol/L (21-32) Anion Gap 9 (6-14) Blood Urea Nitrogen 22 mg/dL (8-26) Creatinine 0.9 mg/dL (0.7-1.3) Estimated GFR (Cockcroft-Gault) 86.7 Glucose Level 86 mg/dL (70-99) Calcium Level 8.8 mg/dL (8.5-10.1) Urine Collection Type Unknown Urine Color Yellow Urine Clarity Clear Urine pH 5.5 (<5.0-8.0) Urine Specific [place] >=1.030 (1.000-1.030) Urine Protein Negative mg/dL (NEG-TRACE) Urine Glucose (UA) Negative mg/dL (NEG) Urine Ketones (Stick) Negative mg/dL (NEG) Urine Blood Negative (NEG) Urine Nitrite Negative (NEG) Urine Bilirubin Negative (NEG) Urine Urobilinogen Dipstick 1.0 mg/dL (0.2 mg/dL) Urine Leukocyte Esterase Negative (NEG) Urine RBC 0 /HPF (0-2) Urine WBC 0 /HPF (0-4) Urine Bacteria 0 /HPF (0-FEW) Urine Mucus Mod /LPF Urine Opiates Screen Neg (NEG) Urine Methadone Screen Neg (NEG) Urine Barbiturates Neg (NEG) Urine Phencyclidine Screen Neg (NEG) Urine Amphetamine/Methamphetamine Neg (NEG) Urine Benzodiazepines Screen Neg (NEG) Urine Cocaine Screen Neg (NEG) Urine Cannabinoids Screen Neg (NEG) Urine Ethyl Alcohol Neg (NEG) Laboratory Tests Test 03/23/20 15:40 03/23/20 17:35 White Blood Count 13.1 x10^3/uL (4.0-11.0) Red Blood Count 4.95 x10^6/uL (4.30-5.70) Hemoglobin 15.0 g/dL (13.0-17.5) Hematocrit 43.2 % (39.0-53.0) Mean Corpuscular Volume 87 fL (79-100) Mean Corpuscular Hemoglobin 30 pg (25-35) Mean Corpuscular Hemoglobin Concent 35 g/dL (31-37) Red Cell Distribution Width 13.1 % (11.5-14.5) Platelet Count 317 x10^3/uL (140-400) Neutrophils (%) (Auto) 75 % (31-73) Lymphocytes (%) (Auto) 18 % (24-48) Monocytes (%) (Auto) 6 % (0-9) Eosinophils (%) (Auto) 1 % (0-3) Basophils (%) (Auto) 0 % (0-3) Neutrophils # (Auto) 9.9 x10^3/uL (1.8-7.7) Lymphocytes # (Auto) 2.4 x10^3/uL (1.0-4.8) Monocytes # (Auto) 0.7 x10^3/uL (0.0-1.1) Eosinophils # (Auto) 0.1 x10^3/uL (0.0-0.7) Basophils # (Auto) 0.1 x10^3/uL (0.0-0.2) Sodium Level 139 mmol/L (136-145) Potassium Level 4.2 mmol/L (3.5-5.1) Chloride Level 101 mmol/L (98-107) Carbon Dioxide Level 29 mmol/L (21-32) Anion Gap 9 (6-14) Blood Urea Nitrogen 22 mg/dL (8-26) Creatinine 0.9 mg/dL (0.7-1.3) Estimated GFR (Cockcroft-Gault) 86.7 Glucose Level 86 mg/dL (70-99) Calcium Level 8.8 mg/dL (8.5-10.1) Urine Collection Type Unknown Urine Color Yellow Urine Clarity Clear Urine pH 5.5 (<5.0-8.0) Urine Specific [place] >=1.030 (1.000-1.030) Urine Protein Negative mg/dL (NEG-TRACE) Urine Glucose (UA) Negative mg/dL (NEG) Urine Ketones (Stick) Negative mg/dL (NEG) Urine Blood Negative (NEG) Urine Nitrite Negative (NEG) Urine Bilirubin Negative (NEG) Urine Urobilinogen Dipstick 1.0 mg/dL (0.2 mg/dL) Urine Leukocyte Esterase Negative (NEG) Urine RBC 0 /HPF (0-2) Urine WBC 0 /HPF (0-4) Urine Bacteria 0 /HPF (0-FEW) Urine Mucus Mod /LPF Urine Opiates Screen Neg (NEG) Urine Methadone Screen Neg (NEG) Urine Barbiturates Neg (NEG) Urine Phencyclidine Screen Neg (NEG) Urine Amphetamine/Methamphetamine Neg (NEG) Urine Benzodiazepines Screen Neg (NEG) Urine Cocaine Screen Neg (NEG) Urine Cannabinoids Screen Neg (NEG) Urine Ethyl Alcohol Neg (NEG) Medications Current Medications Labetalol HCl (Normodyne Iv Push) 10 mg 1X ONCE IVP Last administered on 03/22/20at 05:25; Start 03/22/20 at 05:15; Stop 03/22/20 at 05:16; Status DC Lorazepam (Ativan Inj) 0.5 mg 1X ONCE IVP ; Start 03/22/20 at 05:15; Stop 03/22/20 at 05:16; Status DC Labetalol HCl (Normodyne Iv Push) 10 mg PRN Q4HRS PRN IVP HYPERTENSION; Start 03/22/20 at 05:30 Lorazepam (Ativan Inj) 0.5 mg PRN Q4HRS PRN IVP ANXIETY / AGITATION; Start 03/22/20 at 05:30 Aspirin (Almita Aspirin) 325 mg 1X ONCE PO Last administered on 03/22/20at 05:38; Start 03/22/20 at 05:30; Stop 03/22/20 at 05:31; Status DC Simvastatin (Zocor) 40 mg HS PO ; Start 03/22/20 at 21:00; Stop 03/22/20 at 10:18; Status DC Lisinopril (Prinivil) 40 mg DAILY PO Last administered on 03/22/20at 11:16; Start 03/22/20 at 10:00; Stop 03/22/20 at 13:03; Status DC Amlodipine Besylate (Norvasc) 5 mg DAILY PO ; Start 03/22/20 at 10:30; Stop 03/22/20 at 13:03; Status DC Aspirin (Ecotrin) 81 mg DAILYWBKFT PO Last administered on 03/24/20at 08:02; Start 03/23/20 at 08:00 Atorvastatin Calcium (Lipitor) 10 mg QHS PO Last administered on 03/23/20at 22:20; Start 03/22/20 at 21:00 Lisinopril (Prinivil) 20 mg BID PO Last administered on 03/24/20at 08:02; Start 03/22/20 at 14:00 Iohexol (Omnipaque 300 Mg/ml) 75 ml 1X ONCE IV Last administered on 03/23/20at 08:30; Start 03/23/20 at 08:30; Stop 03/23/20 at 08:31; Status DC Info (CONTRAST GIVEN -- Rx MONITORING) 1 each PRN DAILY PRN MC SEE COMMENTS; Start 03/23/20 at 08:30; Stop 03/25/20 at 08:29 Active Scripts Active Reported Simvastatin 40 Mg Tablet 40 Mg PO HS Lisinopril 40 Mg Tablet 20 PO DAILY Vitals/I & O Vital Sign - Last 24 Hours 03/23/20 03/23/20 03/23/20 03/23/20 11:00 15:02 19:55 20:00 Temp 98.6 98.6 98.3 98.6 98.6 98.3 Pulse 72 70 68 Resp 16 18 18 B/P (MAP) 132/76 (94) 122/86 (98) 146/77 (100) Pulse Ox 96 95 99 O2 Delivery Room Air Room Air Room Air Room Air 03/23/20 03/23/20 03/24/20 03/24/20 22:20 22:45 03:16 07:15 Temp 98.2 98.1 98.0 98.2 98.1 98.0 Pulse 68 59 66 81 Resp 18 16 18 B/P (MAP) 146/77 143/87 (105) 125/79 (94) 141/86 (104) Pulse Ox 98 99 97 O2 Delivery Room Air Room Air Room Air 03/24/20 03/24/20 08:02 08:06 Pulse 81 B/P (MAP) 141/86 O2 Delivery Room Air Intake and Output 03/23/20 03/23/20 03/24/20 15:00 23:00 07:00 Intake Total 420 ml 100 ml 400 ml Balance 420 ml 100 ml 400 ml NALINI VELASQUEZ FINGERPRINTER March 24, 2020 09:26
[2020-03-24] MEDS ORDERED: ASPI325T8 PO (09:50)
--- NOTE | 2020-03-24 09:53 | PDOC3 ---
Discharge Summary Visit Information Date of Admission: March 22, 2020 Date of Discharge: March 24, 2020 Final Diagnosis accelerated hypertension orthostatic hypotension anxiety of health condition hx of carotid stenosis and surgery with Dr. 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 Intracranial right vertebral artery is patent, but demonstrates focal high-grade stenosis. Atherosclerosis of the cervical ICAs with 50 percent stenosis on the right and 60 percent stenosis on the left. Prior left carotid endarterectomy. Problems Medical Problems: (1) Anxiety Status: Acute (2) Hypertensive urgency Status: Acute (3) Weakness Status: Acute Brief Hospital Course Allergies Allergies Coded Allergies Type Severity Reaction Last Updated Verified No Known Drug Allergies 08/25/19 No Vital Signs Vital Signs Date Time Temp Pulse Resp B/P (MAP) Pulse Ox O2 Delivery O2 Flow Rate FiO2 03/24/20 08:06 Room Air 03/24/20 08:02 81 141/86 03/24/20 07:15 98.0 18 97 98.0 Lab Results Laboratory Tests Test 03/22/20 11:15 03/23/20 15:40 03/23/20 17:35 Troponin I Quantitative < 0.017 ng/mL (0.000-0.055) White Blood Count 13.1 x10^3/uL (4.0-11.0) Red Blood Count 4.95 x10^6/uL (4.30-5.70) Hemoglobin 15.0 g/dL (13.0-17.5) Hematocrit 43.2 % (39.0-53.0) Mean Corpuscular Volume 87 fL (79-100) Mean Corpuscular Hemoglobin 30 pg (25-35) Mean Corpuscular Hemoglobin Concent 35 g/dL (31-37) Red Cell Distribution Width 13.1 % (11.5-14.5) Platelet Count 317 x10^3/uL (140-400) Neutrophils (%) (Auto) 75 % (31-73) Lymphocytes (%) (Auto) 18 % (24-48) Monocytes (%) (Auto) 6 % (0-9) Eosinophils (%) (Auto) 1 % (0-3) Basophils (%) (Auto) 0 % (0-3) Neutrophils # (Auto) 9.9 x10^3/uL (1.8-7.7) Lymphocytes # (Auto) 2.4 x10^3/uL (1.0-4.8) Monocytes # (Auto) 0.7 x10^3/uL (0.0-1.1) Eosinophils # (Auto) 0.1 x10^3/uL (0.0-0.7) Basophils # (Auto) 0.1 x10^3/uL (0.0-0.2) Sodium Level 139 mmol/L (136-145) Potassium Level 4.2 mmol/L (3.5-5.1) Chloride Level 101 mmol/L (98-107) Carbon Dioxide Level 29 mmol/L (21-32) Anion Gap 9 (6-14) Blood Urea Nitrogen 22 mg/dL (8-26) Creatinine 0.9 mg/dL (0.7-1.3) Estimated GFR (Cockcroft-Gault) 86.7 Glucose Level 86 mg/dL (70-99) Calcium Level 8.8 mg/dL (8.5-10.1) Urine Collection Type Unknown Urine Color Yellow Urine Clarity Clear Urine pH 5.5 (<5.0-8.0) Urine Specific [place] >=1.030 (1.000-1.030) Urine Protein Negative mg/dL (NEG-TRACE) Urine Glucose (UA) Negative mg/dL (NEG) Urine Ketones (Stick) Negative mg/dL (NEG) Urine Blood Negative (NEG) Urine Nitrite Negative (NEG) Urine Bilirubin Negative (NEG) Urine Urobilinogen Dipstick 1.0 mg/dL (0.2 mg/dL) Urine Leukocyte Esterase Negative (NEG) Urine RBC 0 /HPF (0-2) Urine WBC 0 /HPF (0-4) Urine Bacteria 0 /HPF (0-FEW) Urine Mucus Mod /LPF Urine Opiates Screen Neg (NEG) Urine Methadone Screen Neg (NEG) Urine Barbiturates Neg (NEG) Urine Phencyclidine Screen Neg (NEG) Urine Amphetamine/Methamphetamine Neg (NEG) Urine Benzodiazepines Screen Neg (NEG) Urine Cocaine Screen Neg (NEG) Urine Cannabinoids Screen Neg (NEG) Urine Ethyl Alcohol Neg (NEG) Laboratory Tests Test 03/23/20 15:40 03/23/20 17:35 White Blood Count 13.1 x10^3/uL (4.0-11.0) Red Blood Count 4.95 x10^6/uL (4.30-5.70) Hemoglobin 15.0 g/dL (13.0-17.5) Hematocrit 43.2 % (39.0-53.0) Mean Corpuscular Volume 87 fL (79-100) Mean Corpuscular Hemoglobin 30 pg (25-35) Mean Corpuscular Hemoglobin Concent 35 g/dL (31-37) Red Cell Distribution Width 13.1 % (11.5-14.5) Platelet Count 317 x10^3/uL (140-400) Neutrophils (%) (Auto) 75 % (31-73) Lymphocytes (%) (Auto) 18 % (24-48) Monocytes (%) (Auto) 6 % (0-9) Eosinophils (%) (Auto) 1 % (0-3) Basophils (%) (Auto) 0 % (0-3) Neutrophils # (Auto) 9.9 x10^3/uL (1.8-7.7) Lymphocytes # (Auto) 2.4 x10^3/uL (1.0-4.8) Monocytes # (Auto) 0.7 x10^3/uL (0.0-1.1) Eosinophils # (Auto) 0.1 x10^3/uL (0.0-0.7) Basophils # (Auto) 0.1 x10^3/uL (0.0-0.2) Sodium Level 139 mmol/L (136-145) Potassium Level 4.2 mmol/L (3.5-5.1) Chloride Level 101 mmol/L (98-107) Carbon Dioxide Level 29 mmol/L (21-32) Anion Gap 9 (6-14) Blood Urea Nitrogen 22 mg/dL (8-26) Creatinine 0.9 mg/dL (0.7-1.3) Estimated GFR (Cockcroft-Gault) 86.7 Glucose Level 86 mg/dL (70-99) Calcium Level 8.8 mg/dL (8.5-10.1) Urine Collection Type Unknown Urine Color Yellow Urine Clarity Clear Urine pH 5.5 (<5.0-8.0) Urine Specific [place] >=1.030 (1.000-1.030) Urine Protein Negative mg/dL (NEG-TRACE) Urine Glucose (UA) Negative mg/dL (NEG) Urine Ketones (Stick) Negative mg/dL (NEG) Urine Blood Negative (NEG) Urine Nitrite Negative (NEG) Urine Bilirubin Negative (NEG) Urine Urobilinogen Dipstick 1.0 mg/dL (0.2 mg/dL) Urine Leukocyte Esterase Negative (NEG) Urine RBC 0 /HPF (0-2) Urine WBC 0 /HPF (0-4) Urine Bacteria 0 /HPF (0-FEW) Urine Mucus Mod /LPF Urine Opiates Screen Neg (NEG) Urine Methadone Screen Neg (NEG) Urine Barbiturates Neg (NEG) Urine Phencyclidine Screen Neg (NEG) Urine Amphetamine/Methamphetamine Neg (NEG) Urine Benzodiazepines Screen Neg (NEG) Urine Cocaine Screen Neg (NEG) Urine Cannabinoids Screen Neg (NEG) Urine Ethyl Alcohol Neg (NEG) Brief Hospital Course Mr. Navarro is a 59 old male, admit for leg and arm weakness intermittent, high blood pressure, anxiety driving accelerated htn neck doppler of prior CTA surg showed possible blockage, angiogram done and showed 50% sten on left and 60% on right, OK to follow outpatient, vasc, CV clinics consult cardio, neuro vascular, taking 20 mg lisinopril only, and checking 3 times a day and gets upset if he gets ANY high readings, needs reassurance bp control Outpatient EMG study per neuro eval Discharge Information Condition at Discharge: Improved Follow Up: Weeks Disposition/Orders: D/C to Home Scheduled Aspirin (Aspirin) 81 Mg Tab.chew, 1 TAB PO DAILY for cardiac, #30 Ref 3 Prescribed by: ELOINA SORIANO on 03/24/201255 Lisinopril (Lisinopril) 40 Mg Tablet, 20 PO DAILY for hypertension, (Reported) Entered as Reported by: AMERICA WILSON on 03/22/20750 Last Action: Converted on 03/22/20952 by ELOINA SORIANO Prasugrel Hcl (Effient) 10 Mg Tablet, 1 TAB PO DAILY for cardiac, #30 Ref 3 Prescribed by: ELOINA SORIANO on 03/24/201255 Simvastatin (Simvastatin) 40 Mg Tablet, 40 MG PO HS for elevated cholesterol, (Reported) Entered as Reported by: AMERICA WILSON on 03/22/20750 Last Action: Continued on 03/22/20952 by ELOINA SORIANO Patient Instructions Patient Instructions > 30 min face to face ELOINA SORIANO MD March 24, 2020 09:53
[2020-03-24 10:53] VITALS: BP 114/82
--- NOTE | 2020-03-24 11:22 | PDOC ---
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 1122: CARDIO Progress Notes Date and Time Date of Service 03/24/20 Time of Evaluation 1110 Subjective Subjective: No Chest Pain, No shortness of breath, No Palpitations, No Dizziness, Other (anxious about having surgery again ) Vitals Vitals Vital Signs Date Time Temp Pulse Resp B/P (MAP) Pulse Ox O2 Delivery O2 Flow Rate FiO2 03/24/20 10:53 97.8 69 20 114/82 (93) 96 Room Air 97.8 Weight Weight [ ] Input and Output Intake and Output Intake and Output 03/24/20 07:00 Intake Total 920 ml Balance 920 ml Intake Oral 920 ml Laboratory Labs Laboratory Tests Test 03/23/20 15:40 03/23/20 17:35 White Blood Count 13.1 x10^3/uL (4.0-11.0) Red Blood Count 4.95 x10^6/uL (4.30-5.70) Hemoglobin 15.0 g/dL (13.0-17.5) Hematocrit 43.2 % (39.0-53.0) Mean Corpuscular Volume 87 fL (79-100) Mean Corpuscular Hemoglobin 30 pg (25-35) Mean Corpuscular Hemoglobin Concent 35 g/dL (31-37) Red Cell Distribution Width 13.1 % (11.5-14.5) Platelet Count 317 x10^3/uL (140-400) Neutrophils (%) (Auto) 75 % (31-73) Lymphocytes (%) (Auto) 18 % (24-48) Monocytes (%) (Auto) 6 % (0-9) Eosinophils (%) (Auto) 1 % (0-3) Basophils (%) (Auto) 0 % (0-3) Neutrophils # (Auto) 9.9 x10^3/uL (1.8-7.7) Lymphocytes # (Auto) 2.4 x10^3/uL (1.0-4.8) Monocytes # (Auto) 0.7 x10^3/uL (0.0-1.1) Eosinophils # (Auto) 0.1 x10^3/uL (0.0-0.7) Basophils # (Auto) 0.1 x10^3/uL (0.0-0.2) Sodium Level 139 mmol/L (136-145) Potassium Level 4.2 mmol/L (3.5-5.1) Chloride Level 101 mmol/L (98-107) Carbon Dioxide Level 29 mmol/L (21-32) Anion Gap 9 (6-14) Blood Urea Nitrogen 22 mg/dL (8-26) Creatinine 0.9 mg/dL (0.7-1.3) Estimated GFR (Cockcroft-Gault) 86.7 Glucose Level 86 mg/dL (70-99) Calcium Level 8.8 mg/dL (8.5-10.1) Urine Collection Type Unknown Urine Color Yellow Urine Clarity Clear Urine pH 5.5 (<5.0-8.0) Urine Specific [place] >=1.030 (1.000-1.030) Urine Protein Negative mg/dL (NEG-TRACE) Urine Glucose (UA) Negative mg/dL (NEG) Urine Ketones (Stick) Negative mg/dL (NEG) Urine Blood Negative (NEG) Urine Nitrite Negative (NEG) Urine Bilirubin Negative (NEG) Urine Urobilinogen Dipstick 1.0 mg/dL (0.2 mg/dL) Urine Leukocyte Esterase Negative (NEG) Urine RBC 0 /HPF (0-2) Urine WBC 0 /HPF (0-4) Urine Bacteria 0 /HPF (0-FEW) Urine Mucus Mod /LPF Urine Opiates Screen Neg (NEG) Urine Methadone Screen Neg (NEG) Urine Barbiturates Neg (NEG) Urine Phencyclidine Screen Neg (NEG) Urine Amphetamine/Methamphetamine Neg (NEG) Urine Benzodiazepines Screen Neg (NEG) Urine Cocaine Screen Neg (NEG) Urine Cannabinoids Screen Neg (NEG) Urine Ethyl Alcohol Neg (NEG) Physical Exam HEENT: Neck Supple W Full Motion Chest: Symmetric LUNGS: Clear to Auscultation Heart: S1S2, RRR Abdomen: Soft N/T Extremities: No Edema Neurology: alert, oriented, follow commands, other (anxious ) Assessment Assessment 1. Hypertensive urgency; now well controlled 2. Intermittent bilateral LE heaviness/weakness; last 10-15 seconds and resolves without intervention. ? spinal stenosis. Doubt cardiac etiology. neuro following. Outpatient EMG planned 3. Carotid disease; s/p recent left carotid endarterectomy at . CTA shows 60- 70 % restenosis. Vascular recommending revascularization. D/w Sammi Delgadillo; Dr. Denson recommends ASA/Effient and he will send in prescription for Effient. 4. Hyperlipidemia; statin 5. Tobaccoism; in remission 6. Anxiety Recommendations Continue lisinopril BID ASA, statin Follow vascular recs Outpatient echocardiogram to assess LV systolic function May discharge from a CV standpoint Follow up in 3 months Consider outpatient stress test based upon risk factors. Supportive care. JONATHAN MERCADO MD 03/24/20 1710: CARDIO Progress Notes Assessment Assessment Patient seen and evaluated. I agree with our nurse practitioners assessment. Hypertensive urgency; now well controlled Intermittent bilateral LE heaviness/weakness; last 10-15 seconds and resolves without intervention. ? spinal stenosis. Doubt cardiac etiology. neuro following. Outpatient EMG planned Carotid disease; s/p recent left carotid endarterectomy at . CTA shows 60-70 % restenosis. Vascular recommending revascularization. D/w Sammi Delgadillo; Dr. Denson recommends ASA/Effient and he will send in prescription for Effient. Hyperlipidemia; statin TIN THOMPSON APRN March 24, 2020 11:22 JONATHAN MERCADO MD March 24, 2020 17:10
--- NOTE | 2020-03-24 11:51 | PDOC ---
Provider Note Provider Note Dr. Denson was able to review the CTA films. He is recommending a Transcarotid artery revascularization on the left ( Left TCAR). He will need to be on both aspirin and another antiplatelet agent like Plavix to get safely through the procedure. These medications WILL NOT be stopped prior to surgery. Patient has a history of Plavix intolerance. It may be worth it to try again with the Plavix, particularly prior to discharge from [facility], before trying something else (Effient). From a vascular surgery standpoint, he may be discharged from [facility] when medically stable. We will follow up with Mr. Navarro by phone regarding TCAR information and instruction for surgery. I discussed the above information with Mr. Navarro by phone. NALINI VELASQUEZ APRN March 24, 2020 11:51
[2020-03-24] MEDS ORDERED: PRASUGREL 10 MG TABLET. PO SCH (12:00)
[2020-03-24] MEDS ORDERED: ASPI-630 PO (12:56)
[2020-03-24] MEDS ORDERED: PRAS10TA9 PO (12:56)
--- NOTE | 2020-03-24 13:51 | NUR ---
Pt discharged home with self care. Discharge instructions and prescriptions discussed. Pt verbalized understanding. IV removed. Pt ambulated to ed entrance and walked to his own personal vehicle.
--- NOTE | 2020-03-24 14:01 | PDOC ---
PROGRESS NOTES Assessment Problems Medical Problems: (1) Anxiety Status: Acute (2) Hypertensive urgency Status: Acute (3) Weakness Status: Acute Various neurological symptoms, doubt transient ischemic attacks. Consider hypertensive encephalopathy, cervical and lumbar stenosis (Had mildly abnormal cervical MRI, 09/04/19, also had a lumbar MRI in [place]), peripheral entrapment neuropathy, anxiety. Possible left carotid re-stenosis, but CTA is negative Right vertebral artery disease Plan No need for repeat vascular surgery Okayed for discharge yesterday, went home today Outpatient EMG study Wants to stop clopidogrel, makes his heart race, willing to take a daily aspirin and his statin Subjective no new complaints Objective Vital Signs Date Time Temp Pulse Resp B/P (MAP) Pulse Ox O2 Delivery O2 Flow Rate FiO2 03/24/20 10:53 97.8 69 20 114/82 (93) 96 Room Air 97.8 Intake and Output 03/24/20 07:00 Intake Total 920 ml Balance 920 ml Intake Oral 920 ml PHYSICAL EXAM Physical Exam: Alert. Oriented to time, place and person. Hard of hearing PERRL. EOMI. CN: no focal findings. Muscle tone: normal. Muscle strength: 5/5 DTR: 2+ Plantar reflex: flexor Gait: not examined Sensory exam: no abnormal findings. No cerebellar signs elicited. Review of Relevant I have reviewed the following items ashley (where applicable) has been applied. Labs Laboratory Tests Test 03/23/20 15:40 03/23/20 17:35 White Blood Count 13.1 x10^3/uL (4.0-11.0) Red Blood Count 4.95 x10^6/uL (4.30-5.70) Hemoglobin 15.0 g/dL (13.0-17.5) Hematocrit 43.2 % (39.0-53.0) Mean Corpuscular Volume 87 fL (79-100) Mean Corpuscular Hemoglobin 30 pg (25-35) Mean Corpuscular Hemoglobin Concent 35 g/dL (31-37) Red Cell Distribution Width 13.1 % (11.5-14.5) Platelet Count 317 x10^3/uL (140-400) Neutrophils (%) (Auto) 75 % (31-73) Lymphocytes (%) (Auto) 18 % (24-48) Monocytes (%) (Auto) 6 % (0-9) Eosinophils (%) (Auto) 1 % (0-3) Basophils (%) (Auto) 0 % (0-3) Neutrophils # (Auto) 9.9 x10^3/uL (1.8-7.7) Lymphocytes # (Auto) 2.4 x10^3/uL (1.0-4.8) Monocytes # (Auto) 0.7 x10^3/uL (0.0-1.1) Eosinophils # (Auto) 0.1 x10^3/uL (0.0-0.7) Basophils # (Auto) 0.1 x10^3/uL (0.0-0.2) Sodium Level 139 mmol/L (136-145) Potassium Level 4.2 mmol/L (3.5-5.1) Chloride Level 101 mmol/L (98-107) Carbon Dioxide Level 29 mmol/L (21-32) Anion Gap 9 (6-14) Blood Urea Nitrogen 22 mg/dL (8-26) Creatinine 0.9 mg/dL (0.7-1.3) Estimated GFR (Cockcroft-Gault) 86.7 Glucose Level 86 mg/dL (70-99) Calcium Level 8.8 mg/dL (8.5-10.1) Urine Collection Type Unknown Urine Color Yellow Urine Clarity Clear Urine pH 5.5 (<5.0-8.0) Urine Specific [place] >=1.030 (1.000-1.030) Urine Protein Negative mg/dL (NEG-TRACE) Urine Glucose (UA) Negative mg/dL (NEG) Urine Ketones (Stick) Negative mg/dL (NEG) Urine Blood Negative (NEG) Urine Nitrite Negative (NEG) Urine Bilirubin Negative (NEG) Urine Urobilinogen Dipstick 1.0 mg/dL (0.2 mg/dL) Urine Leukocyte Esterase Negative (NEG) Urine RBC 0 /HPF (0-2) Urine WBC 0 /HPF (0-4) Urine Bacteria 0 /HPF (0-FEW) Urine Mucus Mod /LPF Urine Opiates Screen Neg (NEG) Urine Methadone Screen Neg (NEG) Urine Barbiturates Neg (NEG) Urine Phencyclidine Screen Neg (NEG) Urine Amphetamine/Methamphetamine Neg (NEG) Urine Benzodiazepines Screen Neg (NEG) Urine Cocaine Screen Neg (NEG) Urine Cannabinoids Screen Neg (NEG) Urine Ethyl Alcohol Neg (NEG) Laboratory Tests Test 03/23/20 15:40 03/23/20 17:35 White Blood Count 13.1 x10^3/uL (4.0-11.0) Red Blood Count 4.95 x10^6/uL (4.30-5.70) Hemoglobin 15.0 g/dL (13.0-17.5) Hematocrit 43.2 % (39.0-53.0) Mean Corpuscular Volume 87 fL (79-100) Mean Corpuscular Hemoglobin 30 pg (25-35) Mean Corpuscular Hemoglobin Concent 35 g/dL (31-37) Red Cell Distribution Width 13.1 % (11.5-14.5) Platelet Count 317 x10^3/uL (140-400) Neutrophils (%) (Auto) 75 % (31-73) Lymphocytes (%) (Auto) 18 % (24-48) Monocytes (%) (Auto) 6 % (0-9) Eosinophils (%) (Auto) 1 % (0-3) Basophils (%) (Auto) 0 % (0-3) Neutrophils # (Auto) 9.9 x10^3/uL (1.8-7.7) Lymphocytes # (Auto) 2.4 x10^3/uL (1.0-4.8) Monocytes # (Auto) 0.7 x10^3/uL (0.0-1.1) Eosinophils # (Auto) 0.1 x10^3/uL (0.0-0.7) Basophils # (Auto) 0.1 x10^3/uL (0.0-0.2) Sodium Level 139 mmol/L (136-145) Potassium Level 4.2 mmol/L (3.5-5.1) Chloride Level 101 mmol/L (98-107) Carbon Dioxide Level 29 mmol/L (21-32) Anion Gap 9 (6-14) Blood Urea Nitrogen 22 mg/dL (8-26) Creatinine 0.9 mg/dL (0.7-1.3) Estimated GFR (Cockcroft-Gault) 86.7 Glucose Level 86 mg/dL (70-99) Calcium Level 8.8 mg/dL (8.5-10.1) Urine Collection Type Unknown Urine Color Yellow Urine Clarity Clear Urine pH 5.5 (<5.0-8.0) Urine Specific [place] >=1.030 (1.000-1.030) Urine Protein Negative mg/dL (NEG-TRACE) Urine Glucose (UA) Negative mg/dL (NEG) Urine Ketones (Stick) Negative mg/dL (NEG) Urine Blood Negative (NEG) Urine Nitrite Negative (NEG) Urine Bilirubin Negative (NEG) Urine Urobilinogen Dipstick 1.0 mg/dL (0.2 mg/dL) Urine Leukocyte Esterase Negative (NEG) Urine RBC 0 /HPF (0-2) Urine WBC 0 /HPF (0-4) Urine Bacteria 0 /HPF (0-FEW) Urine Mucus Mod /LPF Urine Opiates Screen Neg (NEG) Urine Methadone Screen Neg (NEG) Urine Barbiturates Neg (NEG) Urine Phencyclidine Screen Neg (NEG) Urine Amphetamine/Methamphetamine Neg (NEG) Urine Benzodiazepines Screen Neg (NEG) Urine Cocaine Screen Neg (NEG) Urine Cannabinoids Screen Neg (NEG) Urine Ethyl Alcohol Neg (NEG) Medications Current Medications Labetalol HCl (Normodyne Iv Push) 10 mg 1X ONCE IVP Last administered on 03/22/20at 05:25; Start 03/22/20 at 05:15; Stop 03/22/20 at 05:16; Status DC Lorazepam (Ativan Inj) 0.5 mg 1X ONCE IVP ; Start 03/22/20 at 05:15; Stop 03/22/20 at 05:16; Status DC Labetalol HCl (Normodyne Iv Push) 10 mg PRN Q4HRS PRN IVP HYPERTENSION; Start 03/22/20 at 05:30; Stop 03/24/20 at 13:54; Status DC Lorazepam (Ativan Inj) 0.5 mg PRN Q4HRS PRN IVP ANXIETY / AGITATION; Start 03/22/20 at 05:30; Stop 03/24/20 at 13:54; Status DC Aspirin (Almita Aspirin) 325 mg 1X ONCE PO Last administered on 03/22/20at 05:38; Start 03/22/20 at 05:30; Stop 03/22/20 at 05:31; Status DC Simvastatin (Zocor) 40 mg HS PO ; Start 03/22/20 at 21:00; Stop 03/22/20 at 10:18; Status DC Lisinopril (Prinivil) 40 mg DAILY PO Last administered on 03/22/20at 11:16; Start 03/22/20 at 10:00; Stop 03/22/20 at 13:03; Status DC Amlodipine Besylate (Norvasc) 5 mg DAILY PO ; Start 03/22/20 at 10:30; Stop 03/22/20 at 13:03; Status DC Aspirin (Ecotrin) 81 mg DAILYWBKFT PO Last administered on 03/24/20at 08:02; Start 03/23/20 at 08:00; Stop 03/24/20 at 13:54; Status DC Atorvastatin Calcium (Lipitor) 10 mg QHS PO Last administered on 03/23/20at 22:20; Start 03/22/20 at 21:00; Stop 03/24/20 at 13:54; Status DC Lisinopril (Prinivil) 20 mg BID PO Last administered on 03/24/20at 08:02; Start 03/22/20 at 14:00; Stop 03/24/20 at 13:54; Status DC Iohexol (Omnipaque 300 Mg/ml) 75 ml 1X ONCE IV Last administered on 03/23/20at 08:30; Start 03/23/20 at 08:30; Stop 03/23/20 at 08:31; Status DC Info (CONTRAST GIVEN -- Rx MONITORING) 1 each PRN DAILY PRN MC SEE COMMENTS; Start 03/23/20 at 08:30; Stop 03/24/20 at 13:54; Status DC Prasugrel (Effient) 10 mg DAILYWBKFT PO ; Start 03/24/20 at 12:00; Stop 03/24/20 at 13:54; Status DC Active Scripts Active Effient (Prasugrel Hcl) 10 Mg Tablet 1 Tab PO DAILY Aspirin 81 Mg Tab.chew 1 Tab PO DAILY Reported Simvastatin 40 Mg Tablet 40 Mg PO HS Lisinopril 40 Mg Tablet 20 PO DAILY Vitals/I & O Vital Sign - Last 24 Hours 03/23/20 03/23/20 03/23/20 03/23/20 15:02 19:55 20:00 22:20 Temp 98.6 98.3 98.6 98.3 Pulse 70 68 68 Resp 18 18 B/P (MAP) 122/86 (98) 146/77 (100) 146/77 Pulse Ox 95 99 O2 Delivery Room Air Room Air Room Air 03/23/20 03/24/20 03/24/20 03/24/20 22:45 03:16 07:15 08:02 Temp 98.2 98.1 98.0 98.2 98.1 98.0 Pulse 59 66 81 81 Resp 18 16 18 B/P (MAP) 143/87 (105) 125/79 (94) 141/86 (104) 141/86 Pulse Ox 98 99 97 O2 Delivery Room Air Room Air Room Air 03/24/20 03/24/20 08:06 10:53 Temp 97.8 97.8 Pulse 69 Resp 20 B/P (MAP) 114/82 (93) Pulse Ox 96 O2 Delivery Room Air Room Air Intake and Output 03/23/20 03/23/20 03/24/20 15:00 23:00 07:00 Intake Total 420 ml 100 ml 400 ml Balance 420 ml 100 ml [address] ANGIOGRAPHY NECK Date: 03/23/2020 8:14 AM Indication: Abnormal carotid ultrasound, carotid stenosis Comparison: Ultrasound 01/21/2020 Technique: CT angiogram of neck was obtained with bolus injection of 75 mL of Omnipaque 300. The images were sent to workstation and multiplanar reconstructions were obtained. Multiplanar reconstruction images to include MIP and 3-D reconstruction images are submitted. One or more of the following dose reduction techniques were utilized: Automated exposure control (AEC), Adjustment of mA and/or kV according to patient size, Use of iterative reconstruction technique such as ASiR, CT scan done according to ALARA and image gently/image wisely Findings: Right carotid: The right common carotid artery is patent and normal caliber. Atherosclerosis of the carotid bifurcation. 50 percent stenosis of the right internal carotid artery per NASCET criteria. The right external carotid artery is patent. Left carotid: The left common carotid artery is patent and normal caliber. Left carotid endarterectomy. Atherosclerosis of the carotid bifurcation. 50 percent stenosis of the left internal carotid artery per NASCET criteria. The left external carotid artery is patent. 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 Intracranial right vertebral artery is patent, however there is a focal high-grade stenosis. Left vertebral: The left vertebral artery is dominant and widely patent. The visualized portions of the aortic arch are normal. The origins of the brachiocephalic and subclavian arteries are normal. No cervical lymphadenopathy. The thyroid gland is normal. The parotid and submandibular glands are normal. The visualized aerodigestive tract is unremarkable. Moderate multilevel degenerative disc height loss. Multilevel disc protrusions and marginal osteophytes results in multilevel spinal canal stenosis. Multilevel uncovertebral and facet arthrosis with multilevel neural foraminal narrowing. The visualized portions of the lungs are clear. Impression: 1. Atherosclerosis of the cervical ICAs with 50 percent stenosis on the right and 60 percent stenosis on the left. Prior left carotid endarterectomy. 2. 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 Intracranial right vertebral artery is patent, but demonstrates focal high-grade stenosis. 3. Dominant left vertebral artery is widely patent. PRABHAKAR HINES MD March 24, 2020 14:01
== END 2020-03-24 13:45 | disposition home or self-care (01) | DRG 312 ==
LOC: ER 04:33 → 6 SOUTH 05:30
PROVIDERS: ADMIT Internal Medicine; ATTEND Internal Medicine
DX: I95.1 Orthostatic hypotension (principal); I67.4 Hypertensive encephalopathy; I16.0 Hypertensive urgency; E78.00 Pure hypercholesterolemia, unspecified; E78.5 Hyperlipidemia, unspecified; F17.200 Nicotine dependence, unspecified, uncomplicated; F41.9 Anxiety disorder, unspecified; I10 Essential (primary) hypertension; I65.21 Occlusion and stenosis of right carotid artery; I73.9 Peripheral vascular disease, unspecified; J44.9 Chronic obstructive pulmonary disease, unspecified; M47.812 Spondylosis without myelopathy or radiculopathy, cervical region; Z82.49 Family history of ischemic heart disease and other diseases of the circulatory system; Z86.73 Personal history of transient ischemic attack (TIA), and cerebral infarction without residual deficits; M48.00 Spinal stenosis, site unspecified; K21.9 Gastro-esophageal reflux disease without esophagitis; M48.061 Spinal stenosis, lumbar region without neurogenic claudication
CPT/HCPCS: 36415; 70450; 70498; 70551; 80048; 80053; 80307; 81001; 82553; 83735; 84484; 85025; 93005; 93880; 93975; 96374; 99291; J3490; Q9967; G0378